=== PATIENT | male | born 1940 | race Caucasian/White ===

== ENCOUNTER 2022-02-21 08:38 | Emergency (ER) | payer MEDICARE, SELFPAY ==
[2022-02-21] VITALS (28 sets, daily range): BP systolic 163–182; BP diastolic 91–107; PULSE 75–112; RESP 16–31; TEMP 36.9; O2SAT 94–99
--- NOTE | 2022-02-21 08:30 | RT.EKG_ITS ---
APPROVED REPORT Exam: Resting ECG Reason for Exam: chest pain Patient Location: E HR:79 bpm ECG Measurements Heart Rate 79 AXIS WA 171 P 42 QRSd 84 QRS -61 QT 373 T 30 QTc 427 Conclusion Sinus rhythm...normal P axis, V-rate 60- 99 Probable left atrial enlargement...P >50mS, <-0.10mV V1 LAD, consider left anterior fascicular block...axis(240,-40), S>R II III aVF no STEMI, non-diagnostic EKG
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
[2022-02-21 09:06] LABS: Abs Immature Grans 0.03 10^3/uL (0.0-0.06); Absolute Basophil Count 0.04 10^3/uL (0.0-0.2); Absolute Eosinophil Count 0.08 10^3/uL (0.0-0.7); Absolute Lymphocyte Count 1.29 10^3/uL (1.2-3.4); Absolute Monocyte Count 0.64 10^3/uL (0.1-0.8); Absolute Neutrophil Count 6.46 10^3/uL (1.2-6.7); Basophils % 0.5; Eosinophils % 0.9; HCT 50.1 % (40.0-50.0); HGB 16.3 g/dL (13.5-17.5); Immature Grans % 0.4; Lymphocytes % 15.1; MCH 31.6 pg (27.0-33.0); MCHC 32.5 % (32.0-36.0); MCV 97 fL (80-95); MPV 9.6 fL (8.0-11.0); Monocytes % 7.5; Neutrophils % 75.6; Platelet Count 277 10^3/uL (130-400); RBC 5.16 10^6/uL (4.36-5.78); RDW 13.9 % (11.8-14.1); RDW-SD 50.2 fL; WBC 8.54 10^3/uL (4.4-10.8)
[2022-02-21] MEDS: Normal Saline 500 ML IV (09:20)
[2022-02-21] MEDS: Lidocaine 5% Patch 1 PATCH TP (09:25)
[2022-02-21 09:27] LABS: ALT 27 U/L (16-63); AST 56 U/L (15-37); Albumin 3.6 g/dL (3.4-5.0); Alkaline Phosphatase 61 U/L (46-116); Anion Gap 8.8 mmol/L (3-11); BUN 17 mg/dL (7-18); Bilirubin, Total 1.1 mg/dL (0.2-1.0); CO2 28.2 mmol/L (21.0-32.0); CREATININE 0.8 mg/dL (0.70-1.30); Calcium 8.8 mg/dL (8.5-10.1); Chloride 104 mmol/L (98-107); Glucose 100 mg/dL (74-106); Lipase 174 U/L (73-393); Sodium 141 mmol/L (136-145); Total Protein 7.5 g/dL (6.4-8.2); Troponin I < 50 ng/L (<or=60)
[2022-02-21 09:34] LABS: Bilirubin Negative (Negative); Blood Trace-intact (Negative); Clarity Clear (Clear); Glucose Negative (Negative); Ketones Negative (Negative); Leukocyte Esterase Negative (Negative); Nitrite Negative (Negative); Specific Gravity 1.025 (1.005-1.025); Urobilinogen 0.2 EU/dL (Up TO 0.2)
[2022-02-21 09:38] LABS: *AMPHETAMINES SCREEN URINE Negative (Negative); *BARBITURATES SCREEN URINE Negative (Negative); *BENZODIAZEPINES SCREEN URINE Negative (Negative); Cannabinoids THC Positive (Negative); Cocaine Screen,Urine Negative (Negative); METHADONE URINE SCREEN Negative (Negative); OPIATES URINE SCREEN Negative (Negative)
[2022-02-21 09:39] LABS: Tricyclic Antidepressants Negative (Negative)
[2022-02-21 09:42] LABS: Bacteria Negative HPF (Negative); C & S Indicated? No; Casts Negative LPF (Negative); Crystals Negative HPF (Negative); Epithelial Cells Rare HPF (Negative); Mucus Negative (Negative); RBC 0-2 HPF (0-2); WBC Negative HPF (0-5)
[2022-02-21] MEDS: Omnipaque 350 MG/ML 100 ML BTL IJ (10:01)
--- OUTSIDE RECORDS SUMMARY | 2022-02-21 10:27 | XMS_ITS | Encounter Summary ---
:1940 Author Organization [facility] [place] [address] Care Team Providers Name Role Phone Anaya Burch MD Primary Care Provider Reason for Visit Consultation (Routine) - Closed Specialty Diagnoses / Procedures Referred By Contact Refer red To Contact Ophthalmology Diagnoses erm os decreased vision Houston Jenkins MD Batra, Nikhil N, MD [facility] [address] Alli [facility] [place], [place] [id number] [place] [phone] Fax: Referral ID Status Reason Start Date Expiration Date Visits V isits Requested Authorized [id number] Closed Consult, 01/28/2019 01/28/2020 1 1 Test & Treat Encounter Details Date Type Department Care Team Description 03/07/2019 Office Visit Ophthalmology at [facility] Cira Pompa, ERM OS>OD; [facility] MD Tremayne Epiretinal membrane (ERM) of [place] [address] [place] [address] [place], [place] [address] Social History Tobacco Use Types Packs/Day Years Used Date Former Smoker Cigarettes Smokeless Tobacco: Never Used Comments: quit 23 years ago Alcohol Use Standard Drinks/Week Comments Yes 0.8 (1 standard drink = 0.6 oz pure occa ssionally, one drink per night alcohol) Alcohol Habits Answer Date Recorded How often do you have a drink Not asked containing alcohol? How many drinks containing alcohol do Not asked you have on a typical day when you are drinking? How often do you have six or more Not asked drinks on one occasion? Comment: occassionally, one drink per 05/20/2016 night Sex Assigned at Date Recorded Not on file documented as of this encounter Progress Notes Tremayne Pompa MD - 03/07/2019 2:00 PM EDT ASSESSMENT/PLAN: 1. ERM OS>OD 2. Epiretinal membrane (ERM) of both eyes Visual Acuity Visual Acuity (Snellen - Linear) Right Left Dist sc 20/40 +3 20/30 -2 Dist ph sc NI NI Near sc 20/30+3 20/30-2 Has multifocal IOLs 1. Epiretinal membrane, OS>OD Today's fundoscopic exam and multimodal imaging shows epiretinal membrane in both eyes. Discussed the treatment options that include 1) observation and 2) PPV-MP. Emphasized that the primary goal of the surgery is to decrease the metamorphopsia while the visual acuity also improves by a few lines. Discussed that even though the vision improves in most of the patients, in about 20% of thepatients it can stay the same or can even get worse. ASRS fact sheet given. The patient has many hobbies and activities, and feels that his vision is limiting his ability to function. Thus, he is very interested in surgical repair. The RBA of the procedure were discussed, and agreed to observe for another 2 months based on OCT and exam findings today. 2. Multifocal IOL OU -monitor Follow up 2 months for DFE, OCT OU Sooner PRN I, Jose Valencia, have performed the documentation for this encounter in the presence of, and acting as a scribe for Tremayne Pompa MD. I performed the services which were documented by the scribe, and I agree with the accuracy of the documentation in this encounter. Tremayne Pompa MD, PhD Extended Ophthalmoscopy Indication: 1. ERM OS>OD 2. Epiretinal membrane (ERM) of both eyes Technique: A) Indirect ophthalmoscopy with scleral depression B) Slit lamp exam with 90D/78D lens Findings: Main Ophthalmology Exam External Exam Right Left External Normal Normal Slit Lamp Exam Right Left Lids/Lashes Normal Normal Conjunctiva/Sclera 1+ Injection White and quiet Cornea Clear Clear Anterior Chamber Deep and quiet Deep and quiet Iris Round and reactive Round and reactive Lens Posterior chamber intraocular lens Posterior chamber intraocular lens Fundus Exam Right Left Vitreous Normal Normal Disc Normal Normal C/D Ratio 0.5 0.6 Macula Good anatomy without signs of recurrent membrane or edema Mild epiretinal membrane Vessels Normal Normal Periphery 0.5, ERM, attached Equ[place] tear at 9:00 s/p LR documented in this encounter Plan of Treatment Not on filedocumented as of this encounter Procedures Procedure Name Priority Date/Time Associated Diagnosis Comme nts OCT RETINA - OU - Routine 03/07/2019 4:33 PM Epiretinal membra ne Results for this BOTH EYES EDT (ERM) of both eyes procedure are in the results section. documented in this encounter Results OCT [id number] EYES (03/07/2019 4:33 PM EDT) Anatomical Region Laterality Modality Other Specimen (Source) Anatomical Location Collection Method / Collectio n Time Received Time / Laterality Volume Narrative 03/07/2019 4:33 PM EDT Right Eye Quality was good. Scan locations include d subfoveal. Progression has no prior data. Findings include abnormal fo veal contour, epiretinal membrane. Left Eye Quality was good. Scan locations include d subfoveal. Progression has no prior data. Findings include abnormal fo veal contour, epiretinal membrane. Notes Tremayne Pompa MD OPHTHALMOLOGY SERVICES JUANA COMER documented in this encounter Visit Diagnoses Diagnosis ERM OS>OD documented in this encounter Care Teams Machine Stripper Relationship Specialty Start Date End Date Anaya Burch MD PCP - General 07/06/[address] [place] [phone] documented as of this encounter
--- OUTSIDE RECORDS SUMMARY | 2022-02-21 10:27 | XMS_ITS | Clinical Summary ---
:1940 Author Organization [place] [address] Care Team Providers Name Role Phone Anaya Burch MD Primary Care Provider Allergies Active Allergy Reactions Severity Noted Date Comments Sulfa (Sulfonamide High CIS - sev ere gastric Antibiotics) distress Tetracyclines High CIS - severe g astric distress Medications Medication Sig Dispensed Refills Start Date End Date Status GINKGO BILOBA ORAL 0 01/20/2010 Active naproxen sodium (ALEVE) 0 01/20/2010 Active 220 mg tablet multivitamin (THERAGRAN) 0 01/20/2010 Active tablet traZODone (DESYREL) 50 Take 100 mg by 0 Active mg tablet mouth nightly. clonAZEpam (KLONOPIN) Take 0.25 mg by 0 Active 0.5 mg tablet mouth every morning. GLUCOSAM SUL NA/CHONDR Take 400 mg by 0 Active CASAS A NA (GLUCOSAMINE & mouth daily. CHONDROIT SUL.NA ORAL) Active Problems Problem Noted Date Horseshoe retinal tear, left eye 02/15/2013 Obstructive sleep apnea (adult) (pediatric) 09/29/2011 Insomnia 07/20/2011 Anxiety 07/20/2011 Depression 07/20/2011 Resolved Problems Problem Noted Date Resolved Date Snoring 07/20/2011 09/29/2011 Immunizations Name Administration Dates Next Due Influenza Vaccine, Whole 08/14/2007 Pneumococcal Conjugate 7 09/14/2007 Family History Medical History Relation Comments Cancer Father Diabetes Other Amblyopia Neg Hx Cataracts Neg Hx Glaucoma Neg Hx Heart Disease Neg Hx Hypertension Neg Hx Macular Degeneration Neg Hx Retinal Detachment Neg Hx Strabismus Neg Hx Thyroid Disease Neg Hx Relation Status Comments Father Other Social History Tobacco Use Types Packs/Day Years [...] Assigned at Date Recorded Not on file Last Filed Vital Signs Vital Sign Reading Time Taken Comments Blood Pressure 108/87 05/23/2016 3:00 PM EDT Pulse 67 05/23/2016 2:45 PM EDT Temperature 36.4 ??C (97.5 ??F) 05/23/2016 2:18 PM EDT Respiratory Rate 16 05/23/2016 3:00 PM EDT Oxygen Saturation 95% 05/23/2016 3:00 PM EDT Inhaled Oxygen Concentration - - Weight 74.4 kg (164 lb) 05/23/2016 11:53 AM EDT Height 172.7 cm (5' 8) 05/23/2016 11:53 AM EDT Body Mass Index 24.94 05/23/2016 11:53 AM EDT Plan of Treatment Health Maintenance Due Date Last Done Comments Covid-19 Vaccine (#1) 1947 Hepatitis C Screening 1960 Tdap adult 1961 Tetanus vaccine 1961 Zoster vaccine (1 of 2) 1992 Advance Directive 1997 Pneumoccocal Vaccine: 65+ (1 - PCV) 2007 09/14/2007 Influenza (Flu) vaccine (1 of 1 - Influenza standard 04/14/2022 08/14/2007 series) Insurance Payer Benefit Plan / Subscriber ID Effective Phone Address T ype Group Dates MEDICARE MEDICARE PART [id number] 2007-Prese [phone] [facility] [id number] [facility] [id number] 2020-Prese [phone] [address] MEDICARE MANAGED nt [address] [place] [address] [employer] BCBS [id number] 2018-Prese [address] [place] [address] [place] [address] Advance Directives Latest Code Status on File Code Status Date Activated Date Inactivated Comments Full Code 05/23/2016 12:50 PM 05/23/2016 5:35 PM Does patient have capacity to make decision: Yes Care Teams Flight Instructor Relationship Specialty Start Date End Date Anaya Burch MD PCP - General 07/06/10 [address] [place] [address]
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
--- OUTSIDE RECORDS SUMMARY | 2022-02-21 10:27 | XMS_ITS | Encounter Summary ---
:1940 Author Organization [facility] [place] [address] Care Team Providers Name Role Phone Anaya Burch MD Primary Care Provider Reason for Visit Reason Comments Macular Edema ERM OS>OD Encounter Details Date Type Department Care Team Description 07/04/2019 Office Visit Ophthalmology at [facility] Cira Pompa, ERM OS>OD; [facility] MD Tremayne Epiretinal membrane (ERM) [place] [address] [place] [address] [place], [place] [address] Social History Tobacco Use Types [...] encounter Progress Notes Tremayne Pompa MD - 07/04/2019 12:15 PM EST ASSESSMENT/PLAN: 1. ERM OS>OD 2. Epiretinal membrane (ERM) of both eyes Visual Acuity Visual Acuity (Snellen - Linear) Right Left Dist sc 20/40 -2 20/30 -2 Dist ph sc NI NI Near cc 20/30 20/30 Correction: Glasses 1. Epiretinal membrane, OS>OD Today's fundoscopic exam and multimodal imaging shows epiretinal membrane in both eyes. Today 07/04/19 - The patient has many hobbies and activities, and feels that his vision is limiting his ability to function. Thus, he is very interested in surgical repair. The RBA of the procedure were discussed, and agreed to observe for another 6 months based on OCT and exam findings today. Amsler grid given in cl inic 2. 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 Blepharitis OU 4. HST OS - stable Follow up 6 months for DFE, OCT OU I, Jose Valencia, have performed the documentation [...] Normal Slit Lamp Exam Right Left Lids/Lashes blepharitis blepharitis Conjunctiva/Sclera 1+ Injection White and quiet Cornea Clear Clear Anterior Chamber Deep and quiet Deep and quiet Iris Round and reactive Round and reactive Lens multifocal IOL multifocal IOL Fundus Exam Right Left Vitreous Normal Normal Disc Normal Normal C/D Ratio 0.5 0.6 Macula ERM, rare drusen moderate ERM Vessels Normal Normal Periphery Normal Equatorial tear at 9:00 s/p LR documented in this encounter Plan of Treatment Not on filedocumented as of this encounter Procedures Procedure Name Priority Date/Time Associated Diagnosis Comme nts OCT RETINA - OU - Routine 07/04/2019 1:15 PM Epiretinal membra ne Results for this BOTH EYES EST (ERM) of both eyes procedure are in the results section. documented in this encounter Results OCT Retina - OU - Both Eyes (07/04/2019 1:15 PM EST) Anatomical Region Laterality Modality Other Specimen (Source) Anatomical Location Collection Method / Collectio n Time Received Time / Laterality Volume Narrative 07/04/2019 1:15 PM EST Right Eye Quality was good. Scan locations include d subfoveal. Progression has been stable. Findings include abnormal foveal contour, epiretinal membrane. Left Eye Quality was good. Scan locations include d subfoveal. Progression has been stable. Findings include abnormal foveal contour, epiretinal membrane. Notes Tremayne Pompa MD OPHTHALMOLOGY SERVICES JUANA COMER documented in this encounter Visit Diagnoses Diagnosis ERM OS>OD documented in this encounter Care Teams Work Environment Safety Inspector Relationship Specialty Start Date End Date Anaya Burch MD PCP - General 07/06/10 [address] [place] [phone] documented as of this encounter
--- OUTSIDE RECORDS SUMMARY | 2022-02-21 10:27 | XMS_ITS | Encounter Summary ---
:1940 Author Organization [facility] Address [facility] [place] [address] Care Team Providers Name Role Phone Anaya Burch MD Primary Care Provider Reason for Visit Reason Comments Epiretinal Membrane Encounter Details Date Type Department Care Team Description 09/15/2016 Office Visit Ophthalmology at [facility] C Shon Broosk ERM OD (epiretinal membrane, right eye) (Primary Dx); [facility] MD Yogi Horseshoe retinal tear, [place] [address] OPHTHALMOLOGY [place] PT. [place], [place] [address] (Wo rk) Social History Tobacco Use Types Packs/Day Years [...] documented as of this encounter Progress Notes Shon Brooks MD - 09/15/2016 9:45 AM EST Bilateral macular pucker. Status post vitrectomy right eye May 23, 2016. Presently 20/25 Glaucoma suspect Horseshoe tear left eye 9:00 treated many years ago Dry eye syndrome Posterior vitreous separation both eyes Pseudophakia ? Patient continues to do very well after vitrectomy membrane peeling. Follow-up with Dr. Jenkins for continuity of care. Patient doing well in the right eye with 20/25 vision. No evidence of persistent membrane, cystoid macular edema or high-risk peripheral pathology Return immediately if any flashes floaters or visual field loss in left eye or right eye. Return here as needed. documented in this encounter Plan of Treatment Not on filedocumented as of this encounter Procedures Procedure Name Priority Date/Time Associated Diagnosis Comme nts OCT RETINA - OU - Routine 09/15/2016 11:34 AM ERM OD (epiretin al Results for this BOTH EYES EST membrane, right eye) procedu re are in the results section. documented in this encounter Results OCT [id number] EYES (09/15/2016 11:34 AM EST) Anatomical Region Laterality Modality Other Specimen (Source) Anatomical Location Collection Method / Collectio n Time Received Time / Laterality Volume Narrative 09/15/2016 11:34 AM EST This imaging studies indicated by virtue of the patient's history of macular pucker surgery and reduced visua l acuity but also decreased visual acuity left eye and macular pucker Right eye slightly irregular contour but no edema or swelling or recurrent membrane. In the left eye mild epiretina l membrane without progression. No cystoid macular edema hole or unusual tr action in either eye. 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
--- OUTSIDE RECORDS SUMMARY | 2022-02-21 10:27 | XMS_ITS | Encounter Summary ---
:1940 Author Organization [facility] Address [facility] [place] [address] Care Team Providers Name Role Phone Anaya Burch MD Primary Care Provider Reason for Visit Reason Comments Post Op Encounter Details Date Type Department Care Team Description 06/14/2016 Office Visit Ophthalmology at [facility] C Shon Brooks ERM OD (epiretinal [facility] B, membrane, right Drive [facility] eye) [place] [address] [address] [phone] OPHTHALMOLOGY DE PT. [place], [place] [address] (Wo rk) Social History Tobacco [...] encounter Progress Notes Shon Brooks MD - 06/14/2016 10:30 AM EDT Bilateral macular pucker. Glaucoma suspect Horseshoe tear left eye 9:00 treated many years ago Dry eye syndrome Posterior vitreous separation both eyes Pseudophakia Stable status post vitrectomy membrane peeling Improving vision Retina flat 360 in all quadrants Return 4 weeks for OCT scan or sooner if visual field loss or pain documented in this encounter Plan of Treatment Not on filedocumented as of this encounter Visit Diagnoses Diagnosis ERM OD (epiretinal membrane, right eye) Macular puckering of retina documented in this encounter Care Teams Cytopathology Technologist Relationship Specialty Start Date End Date Anaya Burch MD PCP - General 07/06/[address] [place] [phone] documented as of this encounter
--- OUTSIDE RECORDS SUMMARY | 2022-02-21 10:27 | XMS_ITS | Encounter Summary ---
:1940 Author Organization [facility] Address [facility] [place] [address] Care Team Providers Name Role Phone Anaya Burch MD Primary Care Provider Reason for Visit Reason Comments Post Op 1 Day PO for PPV/MP Encounter Details Date Type Department Care Team Description 05/24/2016 Office Visit Ophthalmology at [facility] C Shon Brooks ERM OD (epiretinal [facility] B, membrane, right Drive [facility] eye) [place] [address] [address] [phone] OPHTHALMOLOGY DE PT. [place], [place] [address] (Wo rk) Social History Tobacco [...] encounter Progress Notes Shon Brooks MD - 05/24/2016 10:30 AM EDT Bilateral macular pucker. Glaucoma suspect Horseshoe tear left eye 9:00 treated many years ago Dry eye syndrome Posterior vitreous separation both eyes Pseudophakia ?? Stable postop day 1 vitrectomy membrane peeling for adherent saw man pucker right eye Good initial anatomy Retina periphery flat 360 1 week or immediately a visual field loss or decrease in vision Pred forte and Vigamox each 4 times a day documented in this encounter Plan of Treatment Not on filedocumented as of this encounter Visit Diagnoses Diagnosis ERM OD (epiretinal membrane, right eye) Macular puckering of retina documented in this encounter Care Teams Supervisor Bottle House Cleaners Relationship Specialty Start Date End Date Anaya Burch MD PCP - General 07/06/10 [address] [place] [phone] documented as of this encounter
--- OUTSIDE RECORDS SUMMARY | 2022-02-21 10:27 | XMS_ITS | Encounter Summary ---
:1940 Author Organization [facility] [place] [address] Care Team Providers Name Role Phone Anaya Burch MD Primary Care Provider Reason for Visit Reason Comments Epiretinal Membrane Encounter Details Date Type Department Care Team Description 09/12/2019 Office Visit Ophthalmology at [facility] C Peña, ERM OS>OD; [facility] MD Tremayne Epiretinal membrane (ERM) of [place] [address] [place] [address] [place], [place] [address] Social History Tobacco Use Types [...] encounter Progress Notes Tremayne Pompa MD - 09/12/2019 12:15 PM EST ASSESSMENT/PLAN: 1. ERM OS>OD 2. Epiretinal membrane (ERM) of both eyes Visual Acuity Visual Acuity (Snellen - Linear) Right Left Dist sc 20/50 20/30 -1 Dist ph sc NI NI Near cc 20/20-1 20/30-2 Pt notes VA OU @ D&N is still fuzzy Tonometry Tonometry (Applanation, 12:56 PM) Right Left Pressure 19 19 1. Epiretinal membrane, OS>OD Today's fundoscopic exam and multimodal imaging shows epiretinal membrane in both eyes. Today 09/12/19 - Today the ERMs are overall stable, and definitely not visually significant. Based on that, PPV wasnot recommended at this point 2. Multifocal IOL OU - s/p surgery with Dr. Houston Jenkins in [place], [place] ~5 years ago Today 09/12/19 - Pt reports that his billiard shots have consistently veered off in the same direction. The multifocal IOL appears slightly decentered inferonasally. 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 Recommended an evaluation by Dr. Dailey, to discuss the treatment options (referral for corneal refractive surgery vs IOL exchange vs other). 3. Blepharitis OU - monitor 4. HST OS s/p LR - stable 5. PVD OU Follow up with Dr. Dailey for multifocal IOL evaluation Follow up with retina 6 months for DFE, OCT OU I, [...] reactive Round and reactive Lens multifocal IOL decentered inferonasally multifocal IOL Fundus Exam Right Left Vitreous ?PVD PVD Disc Normal Normal C/D Ratio 0.5 0.6 Macula ERM, rare drusen moderate ERM Vessels Normal Normal Periphery Normal Equatorial tear at 9:00 s/p LR documented in this encounter Plan of Treatment Not on filedocumented as of this encounter Procedures Procedure Name Priority Date/Time Associated Diagnosis Comme nts OCT RETINA - OU - Routine 09/12/2019 1:49 PM Epiretinal membra ne Results for this BOTH EYES EST (ERM) of both eyes procedure are in the results section. documented in this encounter Results OCT Retina - OU - Both Eyes (09/12/2019 1:49 PM EST) Anatomical Region Laterality Modality Other Specimen (Source) Anatomical Location Collection Method / Collectio n Time Received Time / Laterality Volume Narrative 09/12/2019 1:49 PM EST Right Eye Quality was good. [...] OS>OD documented in this encounter Care Teams Berry Picker Machine Operator Relationship Specialty Start Date End Date Anaya Burch MD PCP - General 07/06/[address] [place] [phone] documented as of this encounter
--- OUTSIDE RECORDS SUMMARY | 2022-02-21 10:27 | XMS_ITS | Encounter Summary ---
:1940 [place] [address] Care Team Providers Name Role Phone Anaya Burch MD Primary Care Provider Encounter Details Date Type Department Care Team Description 05/23/2016 Surgery Main Operating Room Shon Brooks W/ Ignacia Calix MD [facility] (WRVU 16.33) [facility] [place] [address] [place] [address] [phone] Social History Tobacco Use Types Packs/Day Years [...] on file documented as of this encounter Last Filed Vital Signs Vital Sign Reading Time Taken Comments Blood Pressure 108/75 05/23/2016 2:45 PM EDT Pulse 67 05/23/2016 2:45 PM EDT Temperature 36.4 ??C (97.5 ??F) 05/23/2016 2:18 PM EDT Respiratory Rate 18 05/23/2016 2:45 PM EDT Oxygen Saturation 98% 05/23/2016 2:45 PM EDT Inhaled Oxygen Concentration - - Weight 74.4 kg (164 lb) 05/23/2016 11:53 AM EDT Height 172.7 cm (5' 8) 05/23/2016 11:53 AM EDT Body Mass Index 24.94 05/23/2016 11:53 AM EDT documented in this encounter Discharge Instructions Discharge InstructionsIrene Morales RN - 05/23/2016 2:36 PM EDT POST ANESTHESIA INSTRUCTIONS Go home, rest, use caution on stairs. Change positions slowly. Do not smoke if you are alone. Diet light to regular as tolerated today. If nausea occurs start with clear liquids and progress slowly. No driving, operating machinery, alcoholic beverages and no important decisions for 24 hours. Monitor IV site for signs and symptoms of infection: increasing redness, swelling, foul drainage, ifoccurs contact M.D. Patients who have had endotrachial tubes (this tube, used by anesthesia department, is passed down your throat after you are asleep, to ensure safe air passage during your operation). A sore throat is normal due to the tube. Cold liquids or soothing lozenges will help ease the discomfort. The generalized muscle aches are due to the medication given to you just before the tube is inserted. As the medication wears off, you may develop muscle soreness, which usually goes away in 12-24 hours. Patient InstructionsShon Brooks MD - 05/23/2016 2:44 PM EDT Positioning after surgery: We recommend that you get up and stretch your legs and move around, with caution, for 5 min of everyhour to avoid a blood clot from forming in your body. Pain control: Use tylenol and ice packs Call the [facility] at [phone] and ask for the doctor residential remodeling subcontractor if you having severe pain, nauseaor vomiting documented in this encounter Medications at Time of Discharge Medication Sig Dispensed Refills Start Date End Date traZODone (DESYREL) 50 mg Take 100 mg by 0 tablet mouth nightly. clonAZEpam (KLONOPIN) 0.5 Take 0.25 mg by 0 mg tablet mouth every morning. GLUCOSAM SUL NA/CHONDR CASAS Take 400 mg by 0 A NA (GLUCOSAMINE & mouth daily. CHONDROIT SUL.NA ORAL) GINKGO BILOBA ORAL 0 01/20/2010 naproxen sodium (ALEVE) 0 01/20/2010 220 mg tablet multivitamin (THERAGRAN) 0 01/20/2010 tablet cycloSPORINE (RESTASIS) Place 1 drop into 0 03/07/2019 0.05 % Dropperette both eyes 2 times daily. aspirin 325 mg EC tablet Take 325 mg by 0 06/02/2016 mouth as needed (for headache). documented as of this encounter Progress Notes Irene Morales RN - 05/23/2016 3:31 PM EDT 1515-Patient alert and oriented, vital signs stable. Reviewed discharge instructions; patient and friendDionte verbalized understanding. Copy of instruction sheet with contact numbers for questions/concerns with patient. Given eye kit bag to take home with pt. Per Dr. Brooks, instructed to come in to clinic tomorrow AM at 0730 for follow up, made note on instruction paperwork, pt aware. Pt denies pain, resp regular, no grimacing. 1527-Pt alert, VSS, escorted out of facility via wheelchair with nurse. Ride home by friendDionte. documented in this encounter H&P Notes Shon Brooks MD - 05/23/2016 12:49 PM EDT Please see complete history and physical recent update No exam, review of system or medication changes per patient Patient requesting LMA anesthesia versus local mac Consent verified Shon Brooks M.D. documented in this encounter Nursing Notes Mirtha Yepez RN - 05/23/2016 1:04 PM EDT 1300 preop skin assesment done by Tiffany Zuleta RN documented in this encounter Miscellaneous Notes Op Note - Shon Brooks MD - 05/23/2016 2:47 PM EDT [facility] [place] Operative Note Patient Name: Curtis Vasquez : [id number] MR#: [id number] Case Date: 05/23/2016 Surgeon: Surgeon(s) and Role: * Shon Brooks MD - Primary CLARIFICATION: BLANKS DATE OF SURGERY: 05/23/2016. PREOPERATIVE DIAGNOSIS: Macular pucker, right eye. POSTOPERATIVE DIAGNOSIS: Macular pucker, right eye. SURGEON: Shon Brooks M.D. ANESTHESIA: General. COMPLICATIONS: None. OPERATION PERFORMED: 1. Membrane peeling. 2. Pars plana vitrectomy. OPERATIVE INDICATIONS: The patient is a gentleman with reduced visual acuity and a macular pucker. After careful review of all the risks, benefits, precautions, alternatives, and indications, including but not limited to retinal detachment, need for further surgery, <___> and any and all rare and unforeseen complications, the patient has given informed consent to proceed with surgery. OPERATIVE TECHNIQUE: Patient was ushered into the operating room. General anesthesia was safely established. A timeout was performed collectively by the surgical and anesthesia teams. A divided 3 port pars plana vitrectomy allowed for removal of all of the vitreous and hyaloid. The membrane was then engaged with a pick followed by forceps removal. This was removed slowly and carefully without complication or difficulty with relatively good anatomy. Please note the membrane was found to be markedly adherent, but it was removed carefully and slowly without undue trauma to the macula. Periphery revealed no holes, tears, dialysis, or other high risk pathology. <___> The eye was then closed with 7-0 Vicryl suture and the pressure titrated to 10 mm. Conjunctiva and Tenon's were coapted followed by supplemental <___> anesthetic followed by subconjunctival injection of <___>. Cosopt and Maxitrol were placed with sterile eye patch and shield. The patient was extubated and discharged to Same Day Surgery. He will be discharged from Same Day Surgery when medically stable and there are no ophthalmic or medical issues. The importance of airway safety, venous thrombosis prevention, and general safety measures carefully reviewed. He will return here tomorrow. He is to call the eye physician residential remodeling subcontractor with any problems, questions, or concerns. Brief Op Note - Shon Brooks MD - 05/23/2016 2:46 PM EDT Brief Operative Note Patient Name: Curtis Vasquez : [id number] MR#: [id number] Case Date: 05/23/2016 Surgeon: Surgeon(s) and Role: * Shon Brooks MD - Primary Preoperative diagnosis: ERM OD Postoperative diagnosis: ERM OD Procedure(s): VITRECTOMY, W/ MEMBRANE STRIPPING Anesthesia: General Findings: ERM Complications: 0 Fluids: LR Estimated Blood Loss:0 Drains: 0 Disposition: awakened from anesthesia, extubated and taken to the recovery room in a stable condition, having suffered no apparent untoward event. Condition: doing well without problems Infection Bundle used? N/A Attestation: Case Date: 05/23/2016 I performed this procedure without the involvement of a resident. (Please see the Surgical Encounter Summary for any Implant and Specimen details pertinent to this patient.) documented in this encounter Plan of Treatment Not on filedocumented as of this encounter Procedures Procedure Name Priority Date/Time Associated Diagnosis Comme nts VITRECTOMY, W/ 05/23/2016 1:04 PM EDT ERM OS (epiretin al MEMBRANE STRIPPING membrane, lef t eye) (WRVU 16.33) ERM OD (epiretinal membrane, right eye) ECG SCAN 05/23/2016 12:00 AM EDT documented in this encounter Results SCAN DOC: ECG (05/23/2016 12:00 AM EDT) Narrative This result has an attachment that is no t available. Scanning Provider MEDIA MGR SCAN EXT ORDR/RSLT documented in this encounter Visit Diagnoses Diagnosis ERM OS (epiretinal membrane, left eye) Macular puckering of retina ERM OD (epiretinal membrane, right eye) Macular puckering of retina documented in this encounter Administered Medications Inactive Administered Medications - up to 3 most recent administrations Medication Order MAR Action Action Date Dose Rate Site atropine 1 % ophthalmic solution Given 05/23/2016 12:11 PM EDT 1 drop 1 drop 1 drop, Right Eye, EVERY 5 MIN, 3 doses, First dose on Mon05/23/16 at 1215, Last dose on Mon05/23/16 at 1225, Day of Surgery (Day of Procedure), Routine Given 05/23/2016 12:06 PM EDT 1 drop Given 05/23/2016 12:01 PM EDT 1 drop balanced salt (BSS PLUS) irrigation Given 05/23/2016 1:24 PM EDT 1 Bottle solution ONCE PRN, Starting on Mon05/23/16 at 1324, Until Mon05/23/16 at 1735, Intra-Operative (Intra-Procedure), Routine balanced salt (BSS) Given 05/23/2016 1:24 PM 3 Bottles 19- Surgical Site irrigation solution EDT ONCE PRN, Starting on Mon05/23/16 at 1324, Until Mon05/23/16 at 1735, Intra-Operative (Intra-Procedure), Routine balanced salt (BSS) Given 05/23/2016 1:25 PM 1 Bottle 19- Surgical Site irrigation solution EDT ONCE PRN, Starting on Mon05/23/16 at 1325, Until Mon05/23/16 at 1735, Intra-Operative (Intra-Procedure), Routine BUpivacaine (PF) (MARCAINE) 0.75 % Given 05/23/2016 2:08 PM EDT 1.25 mLs Right Eye (7.5 mg/mL) injection ONCE PRN, Starting on Mon05/23/16 at 1341, Until Mon05/23/16 at 1735, Intra-Operative (Intra-Procedure), Routine Given 05/23/2016 1:41 PM EDT 0.75 mLs Right Eye ceFAZolin (ANCEF) injection Given 05/23/2016 1:27 PM EDT 100 mg ONCE PRN, Starting on Mon05/23/16 at 1327, Until Mon05/23/16 at 1735, Intra-Operative (Intra-Procedure), Routine dexamethasone (DECADRON) injection Given 05/23/2016 1:25 PM EDT 2 mg ONCE PRN, Starting on Mon05/23/16 at 1325, Until Mon05/23/16 at 1735, Intra-Operative (Intra-Procedure), Routine dorzolamide-timolol (PF) (COSOPT) 2-0.5 % Given 05/23/2016 1:25 PM EDT 1 drop ophthalmic solution ONCE PRN, Starting on Mon05/23/16 at 1325, Until Mon05/23/16 at 1735, Intra-Operative (Intra-Procedure), Routine EPINEPHrine (PF) injection Soln Given 05/23/2016 1:28 PM EDT 0.5 mg ONCE PRN, Starting on Mon05/23/16 at 1328, Until Mon05/23/16 at 1735, Intra-Operative (Intra-Procedure), Routine lactated ringers infusion 1,000 New Bag 05/23/2016 12:14 PM ED T 1,000 mLs 100 mL/hr mL 1,000 mL, at 100 mL/hr, Intravenous, CONTINUOUS, Starting on Mon05/23/16 at 1215, Until Mon05/23/16 at 1530, Day of Surgery (Day of Procedure) lidocaine (XYLOCAINE) 20 Given 05/23/2016 2:08 PM 1.25 mLs 19- Surgical Site mg/mL (2 %) injection EDT ONCE PRN, Starting on Mon05/23/16 at 1341, Until Mon05/23/16 at 1735, Intra-Operative (Intra-Procedure), Routine Given 05/23/2016 1:41 PM EDT 0.75 mLs 19- S urgical Site moxifloxacin (VIGAMOX) 0.5 % ophthalmic Given 05/23/2016 12:11 P M EDT 1 drop solution 1 drop 1 drop, Right Eye, EVERY 5 MIN, 3 doses, First dose on Mon05/23/16 at 1215, Last dose on Mon05/23/16 at 1225, Day of Surgery (Day of Procedure), Routine Given 05/23/2016 12:06 PM EDT 1 drop Given 05/23/2016 12:01 PM EDT 1 drop bxoafxlu-rombkhcic-cirvomxurrwuo (DEXACINE) Given 05/23/2016 1:28 PM EDT 1 Tube 3.5 mg/g-10,000 unit/g-0.1 % ophthalmic ointment ONCE PRN, Starting on Mon05/23/16 at 1328, Until Mon05/23/16 at 1735, Intra-Operative (Intra-Procedure), Routine PHENYLephrine (MYDFRIN) 2.5 % ophthalmic Given 05/23/2016 12:11 PM EDT 1 drop solution 1 drop 1 drop, Right Eye, EVERY 5 MIN, 3 doses, First dose on Mon05/23/16 at 1215, Last dose on Mon05/23/16 at 1225, Day of Surgery (Day of Procedure), Routine Given 05/23/2016 12:06 PM EDT 1 drop Given 05/23/2016 12:01 PM EDT 1 drop povidone-iodine 5 % ophthalmic solution Given 05/23/2016 1:29 PM EDT 30 mLs ONCE PRN, Starting on Mon05/23/16 at 1329, Until Mon05/23/16 at 1735, Intra-Operative (Intra-Procedure), Routine prednisoLONE acetate (PRED FORTE) 1 % Given 05/23/2016 12:01 PM EDT 1 drop ophthalmic suspension 1 drop 1 drop, Right Eye, ONCE, 1 dose, On Mon05/23/16 at 1215, Day of Surgery (Day of Procedure), Routine documented in this encounter Active and Recently Administered Medications Times are shown in EDT. Scheduled Medication Order 05/21/2016 05/22/2016 05/23/2016 atropine 1 % ophthalmic solution 1 drop (COMPLETED) 1201 (Given - Provider: Bonnie Garcia RN)1206 (Given - Provider: Bonnie Garcia RN)1211 (Given - Provider: Bonnie Garcia RN) 1 drop, Right Eye, EVERY 5 MIN, 3 doses, First dose on Mon05/23/16 at 1215, Last dose on Mon05/23/16 at 1225, Day of Surgery (Day of Procedure), Routine moxifloxacin (VIGAMOX) 0.5 % ophthalmic solution 1 drop (COMPLET ED) 1201 (Given - Provider: Bonnie Garcia RN)1206 (Given - Provider: Bonnie Garcia RN)1211 (Given - Provider: Bonnie Garcia RN) 1 drop, Right Eye, EVERY 5 MIN, 3 doses, First dose on 05/23/16 at 1215, Last dose on Mon05/23/16 at 1225, Day of Surgery (Day of Procedure), Routine PHENYLephrine (MYDFRIN) 2.5 % ophthalmic solution 1 drop (COMPLE BARB) 1201 (Given - Provider: Bonnie Garcia RN)1206 (Given - Provider: Bonnie Garcia RN)1211 (Given - Provider: Bonnie Garcia RN) 1 drop, Right Eye, EVERY 5 MIN, 3 doses, First dose on Mon05/23/16 at 1215, Last dose on Mon05/23/16 at 1225, Day of Surgery (Day of Procedure), Routine prednisoLONE acetate (PRED FORTE) 1 % ophthalmic suspension 1 drop (COMPLETED) 1201 (Given - Provider: Bonnie calvillo RN) 1 drop, Right Eye, ONCE, 1 dose, 05/29 at 1215, Day of Surgery (Day of Procedure), Routine sodium chloride 0.9 % flush 5 mL 5 mL, Intravenous, 2 TIMES DAILY, First dose on Mon05/23/16 at 2100, Until Discontinued, Routine Continuous Medication Order 05/21/2016 05/22/2016 05/23/2016 lactated ringers infusion 1,000 mL 1214 (New Bag - Provider: Bonnie Garcia RN) 1,000 mL, at 100 mL/hr, Intravenous, CON TINUOUS, Starting Mon05/23/16 at 1215, Until Mon05/23/16 at 1530, Day of Surgery (Day of Procedure) PRN Medication Order 05/21/2016 05/22/2016 05/23/2016 acetaminophen (TYLENOL) tablet 1,000 mg 1,000 mg, Oral, EVERY 6 HOURS PRN, Start ing Mon05/23/16 at 1445, Until Mon05/23/16 at 1735, Pain, for MODERATE pain (4-6), Do not exceed 4,000 mg in 24 hours, Routine balanced salt (BSS PLUS) irrigation solution (CANCELED) 1324 (Given - Provider: Shon Brooks MD) ONCE PRN, Starting Mon05/23/16 at 1324, Until Mon05/23/16 at 1735, Intra- Operative (Intra-Procedure), Routine balanced salt (BSS) irrigation solution (CANCELED) 1324 (Given - Provider: Shon Brooks MD) ONCE PRN, Starting Mon05/23/16 at 1324, Until Mon05/23/16 at 1735, Intra- Operative (Intra-Procedure), Routine balanced salt (BSS) irrigation solution (CANCELED) 1325 (Given - Provider: Shon Brooks MD) ONCE PRN, Starting 05/23/16 at 1325, Until 05/23/16 at 1735, Intra- Operative (Intra-Procedure), Routine BUpivacaine (PF) (MARCAINE) 0.75 % (7.5 mg/mL) injection (CANCEL ED) 1341 (Given - Provider: Shon Brooks MD)1408 (Given - Provider: Shon Brooks MD) ONCE PRN, Starting 05/23/16 at 1341, Until 05/23/16 at 1735, Intra- Operative (Intra-Procedure), Routine ceFAZolin (ANCEF) injection (CANCELED) 1327 (Given - Provider: Shon Brooks MD - Comment: sc post op) ONCE PRN, Starting 05/23/16 at 1327, Until 05/23/16 at 1735, Intra- Operative (Intra-Procedure), Routine dexamethasone (DECADRON) injection (CANCELED) 1325 (Given - Provider: Sohn Brooks MD - Comment: sc post op) ONCE PRN, Starting 05/23/16 at 1325, Until 05/23/16 at 1735, Intra- Operative (Intra-Procedure), Routine dorzolamide-timolol (PF) (COSOPT) 2-0.5 % ophthalmic solution (C ANCELED) 1325 (Given - Provider: Shon Brooks MD - Comment: post op) ONCE PRN, Starting 05/23/16 at 1325, Until 05/23/16 at 1735, Intra- Operative (Intra-Procedure), Routine EPINEPHrine (PF) injection Soln (CANCELED) 1328 (Given - Provider: Shon Brooks MD - Comment: in bss+) ONCE PRN, Starting 05/23/16 at 1328, Until 05/23/16 at 1735, Intra- Operative (Intra-Procedure), Routine fentaNYL (PF) 50 mcg/mL 2mL syringe 25 mcg, Intravenous, EVERY 5 MIN PRN, St arting Mon05/23/16 at 1420, Until Mon05/23/16 at 1530, Pain, for 1-4 pain score, for 1-4 pain score Hold for respiratory rate less than 10 per minute. Maximum d ose: 250 mcg over one hour., PACU Recovery, Routine fentaNYL (PF) 50 mcg/mL 2mL syringe 50 mcg, Intravenous, EVERY 5 MIN PRN, St arting 05/23/16 at 1420, Until 05/23/16 at 1530, Pain, for 5-10 pain score, for 5-10 pain score Hold for respiratory rate less than 10 per minute. Maximum dose: 250 mcg over one hour., PACU Recovery, Routine lidocaine (XYLOCAINE) 10 mg/mL (1 %) injection 3 mg 3 mg (0.3 mL), Subcutaneous, ONCE PRN, 1 dose, Starting Mon05/23/16 at 1146, Until Mon05/23/16 at 1530, for discomfort with PIV insertion, Day of Surgery (Day of Procedure), Routine lidocaine (XYLOCAINE) 10 mg/mL (1 %) injection 3 mg 3 mg (0.3 mL), Subcutaneous, ONCE PRN, 1 dose, Starting Mon05/23/16 at 1445, Until Mon05/23/16 at 1735, for discomfort with PIV insertion, Routine lidocaine (XYLOCAINE) 20 mg/mL (2 %) injection (CANCELED) 1341 (Given - Provider: Shon Brooks MD)1408 (Given - Provider: Shon Brooks MD) ONCE PRN, Starting Mon05/23/16 at 1341, Until Mon05/23/16 at 1735, Intra- Operative (Intra-Procedure), Routine naloxone (NARCAN) injection 40 mcg 40 mcg, Intravenous, EVERY 5 MIN PRN, St arting 05/23/16 at 1420, Until Mon05/23/16 at 1530, Opioid Reversal, for respiratory rate less than 6 or unresponsive., May repeat every every 5 minutes to i ncrease respiratory rate. DO NOT exceed 120 mcg total dose. Notify anesthesia immediately if administered., PACU Recovery, Routine idgcrnbm-ceyuugcfw-orilrahvjhebm (DEXACI NE) 3.5 mg/g-10,000 unit/g-0.1 % ophthalmic ointment (CANCELED) 1328 (Giv en - Provider: Shon Brooks MD - Comment: 0.25 ml post op) ONCE PRN, Starting 05/23/16 at 1328, Until 05/23/16 at 1735, Intra- Operative (Intra-Procedure), Routine ondansetron (ZOFRAN) injection 4 mg 4 mg, Intravenous, EVERY 30 MIN PRN, Sta rting 05/23/16 at 1420, Until 05/23/16 at 1530, Nausea, May repeat 4 mg once in 30 minutes. If multiple antiemetics ordered, use ondansetron first and i f ineffective use prochlorperazine secon d and if ineffective use promethazine, PACU Recovery povidone-iodine 5 % ophthalmic solution (CANCELED) 1329 (Given - Provider: Shon Brooks MD) ONCE PRN, Starting 05/23/16 at 1329, Until 05/23/16 at 1735, Intra- Operative (Intra-Procedure), Routine promethazine (PHENERGAN) injection 6.25 mg 6.25 mg, Intravenous, EVERY 30 MIN PRN, 2 doses, Starting 05/23/16 at 1420, Until 05/23/16 at 1530, Nausea, If multiple antiemetics ordered, use ondansetron first and if ineffective use prochl orperazine second and if ineffective use promethazine, PACU Norberto very, Routine sodium chloride 0.9 % flush 5-20 mL 5-20 mL, Intravenous, EVERY 1 MIN PRN, S tarting Mon05/23/16 at 1146, Until 05/23/16 at 1530, flush, Flush pertains to all indwelling lines. Flush per protocol found in the job aid using the link pr ovided on this medication record., Day of Surgery (Day of Proced ure), Routine sodium chloride 0.9 % flush 5-20 mL 5-20 mL, Intravenous, EVERY 1 MIN PRN, S tarting 05/23/16 at 1445, Until 05/23/16 at 1735, flush, Flush pertains to all indwelling lines. Flush per protocol found in the job aid using the link provided on this medication record., Routine documented in this encounter Care Teams Health Careers Instructor Relationship Specialty Start Date End Date Anaya Burch MD PCP - General 07/06/10 [address] [place] [id number] documented as of this encounter
--- OUTSIDE RECORDS SUMMARY | 2022-02-21 10:27 | XMS_ITS | Continuity of Care Document ---
:1940 External Reference #:[id number] Author Care Team Providers Name Role Phone Anaya Burch M.D. Care Team Information Division Superintendent Unavail able Anaya Burch M.D. 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 0 12/16/2019 100mg Tablets tablet by mouth Raimundo Burch as directed one hour before sexual activity. Clonazepam 0.5mg take 1 tablet 30tabs F41.9 Anaya J. Tablets every 12 hours Raimundo Burch as needed. Trazodone HCL 50mg Take Three 270tabs G47.00 Anaya J. 00/0 Tablets Tablets By Mouth Raimundo Burch AT Bedtime as Needed Immunizations CPT Code Status Date Vaccine Lot # [id number] Given 10/07/2020 Covid-19 vaccine Moderna, mR NA, LNP-S, PF, 100 mcg/ 0.5 mL 19876 Given 09/09/2020 Covid-19 vaccine Moderna, mR NA, LNP-S, PF, 100 mcg/ 0.5 mL 88053 Given 05/19/2016 Prevnar Pneumococcal PCV13 ( 19Yo+) - [facility] [id number] Supply [id number] Given 05/03/2016 Influenza Vacc, 65+, High Do se, TC Supply [id number] 71045 Given 07/20/2015 Influenza High Dose (Fluzone ) TC Supply [id number] 67417 Given 11/12/2014 Pneumovax Pneumococcal PPSV2 3 Vaccine 2Yrs Or Older [id number] Given 05/09/2013 Influenza Vaccine Split Viru s - Medicare - [id number] Flulaval 76314 Given 11/05/2012 TDaP 7+ Yrs Old - Boostrix/A dacel [id number] 50104 Given 09/11/2007 Pneumovax Pneumococcal PPSV2 3 Vaccine 2Yrs Or Older 71340 Given 09/11/2007 Td (No Pertussis),State Supp lied,7 Yrs Or Older 20976 Given 07/17/2007 Influenza Virus Vaccine, Spl it, Preserv Free, Intradermal Use Vital Signs Date Vital Result Comment 06/03/2019 3:30pm Height 66 inches 5'6 Weight 170.12 lb BMI (Body Mass Index) 27.5 kg/m2 BP Systolic 130 mmHg BP Diastolic 90 mmHg Heart Rate 88 /min 03/27/2018 4:48pm Height 66.75 inches 5'6.75 BP Systolic 118 mmHg BP Diastolic 78 mmHg Heart Rate 60 /min 01/16/2018 11:35am Height 66.75 inches 5'6.75 Weight 169.00 lb BMI (Body Mass Index) 26.7 kg/m2 BP Systolic 162 mmHg BP Diastolic 92 mmHg Heart Rate 60 /min
--- OUTSIDE RECORDS SUMMARY | 2022-02-21 10:27 | XMS_ITS | Encounter Summary ---
:1940 Author Organization [facility] [address] Care Team Providers Name Role Phone Anaya Burch MD Primary Care Provider Reason for Visit Reason Comments Cataract Encounter Details Date Type Department Care Team Description 02/10/2020 Office Visit Ophthalmology at [facility] C Zi Dailey, Epiretinal membrane (ERM) of right eye; [facility] [place] [address] [place] [address] OPHTHALMOLOGY DEPT. [place], [place] [address] Social History Tobacco Use Types [...] documented as of this encounter Progress Notes Zi Dailey MD - 02/10/2020 2:30 PM EDT Assessment/Plan: Curtis Vasquez is a 79 y.o. male with the following ophthalmic issues: 1. Multifocal PCIOL OU 2. ERM OU 3. Minimal hyperopic astigmatism OU Comment: The PCIOLs do not appear significantly decentered, but they are slightly offset above and below the line of sight in each eye. He retains good acuity and overall remains pleased with his vision. I do not know that the lens position has any relationship to his billiard shooting problems. I do not recommend any manipulation or exchange of the IOLs given the open capsules and overall goodfunction. If he wants more expertise in analyzing the effect of the IOL on his billiards, he should see a center specializing in refractive surgery, which would have more sophisticated analytics. I gave him the name of Dr. Muro and Dr. Khanna at [facility]. He expressed satisfaction with the Status Quo and does not feel the need for further evaluation. He will follow with Dr. Jenkins. documented in this encounter Plan of Treatment Not on filedocumented as of this encounter Visit Diagnoses Diagnosis Epiretinal membrane (ERM) of right eye Pseudophakia of both eyes Lens replaced by other means documented in this encounter Care Teams Finishing Wire Sawyer Relationship Specialty Start Date End Date Anaya Burch MD PCP - General 07/06/10 [address] [place] [phone] documented as of this encounter
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
--- OUTSIDE RECORDS SUMMARY | 2022-02-21 10:28 | XMS_ITS | Encounter Summary ---
:1940 Author Organization [facility] [place] [address] Care Team Providers Name Role Phone Anaya Burch MD Primary Care Provider Reason for Visit Reason Comments Blurred Vision The patient presents for pos toperative evaluation after treatment of a portion retinal tear in the left eye. AMBAR Eubanks Encounter Details Date Type Department Care Team Description 01/22/2013 Office Visit Ophthalmology at [facility] C Shon Brooks Horseshoe retinal [facility] MD Yogi tear, left eye Drive [facility] (Primary Dx) [place] [address] [address] [phone] OPHTHALMOLOGY [address] PT. [place], [place] [address] (Wo rk) Social History Tobacco Use Types Packs/Day Years Used Date Former Smoker Alcohol Use Standard Drinks/Week Comments Yes 0.8 (1 standard drink = 0.6 oz pure alco hol) Sex Assigned at Date Recorded Not on file documented as of this encounter Progress Notes Shon Brooks MD - 01/22/2013 6:13 PM EDT Patient stable status post treatment of a retinal tear at 9:00 in the left eye. No new lesions. Goodtreatment reaction Return 4 weeks dilated exam a both eyes. Return stat if any changes. 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
--- OUTSIDE RECORDS SUMMARY | 2022-02-21 10:28 | XMS_ITS | Encounter Summary ---
:1940 Author Organization [facility] Address [address] [place] [address] Care Team Providers Name Role Phone Anaya Burch MD Primary Care Provider Encounter Details Date Type Department Care Team Description 06/03/2019 Results Only [facility] Anaya Burch, [address] [place] [phone] (Wo rk) Social History Tobacco Use Types Packs/Day Years Used Date Former Smoker 0.5 20 Alcohol Use Standard Drinks/Week Comments No 0 (1 standard drink = 0.6 oz pure alcoho l) Sex Assigned at Date Recorded Not on file documented as of this encounter Plan of Treatment Not on filedocumented as of this encounter Procedures Procedure Name Priority Date/Time Associated Diagnosis Comme nts PSA SCREEN Routine 06/03/2019 16:24 EDT Results for this procedure are i n the results section . documented in this encounter Results PSA SCREEN (06/03/2019 16:24 EDT) PSA 1.2 0 - 6.5 ng/ml [facility] Comment: LABORATORY SERVICES Serum PSA concentration should not be interpreted as absolute evidence for the presence or absence of malignant disease. Assayed utilizing Siemens (Gemvara) chemiluminescent technology. ??Values obtained by using different assay methods cannot be used interchangeably. Specimen Blood Performing Organization Address City/State/ZIP Code Phon e Number [facility] [address] [place] [address] SERVICES documented in this encounter Visit Diagnoses Not on filedocumented in this encounter Care Teams Improvement Analyst Relationship Specialty Start Date End Date Anaya Burch MD PCP - General 8/19/09 [address] [place] [phone] documented as of this encounter
--- OUTSIDE RECORDS SUMMARY | 2022-02-21 10:28 | XMS_ITS | Encounter Summary ---
:1940 Author Organization [facility] Address [address] [place] [address] Care Team Providers Name Role Phone Anaya Burch MD Primary Care Provider Reason for Visit Reason Onset Date Comments Appointment Related 11/17/2014 Encounter Details Date Type Department Care Team Description 11/17/2014 Telephone [facility] Zuleyma Ghosh Appoi ntment Related General Surgery - Walker Estrada MD [address] [facility] [address] [facility] [address] [place] [address] [place], [place] [phone] (Wo rk) Social History Tobacco Use Types Packs/Day Years Used Date Never Assessed Sex Assigned at Date Recorded Not on file documented as of this encounter Miscellaneous Notes Telephone Encounter - Magi Varela - 11/19/2014 1636 EDT Curtis returned the call today. He was just released from the hospital. He was wondering what the appt with Dr. Ghosh was for and he stated that one of the dr's in the hospital stated that they ought to do gall bladder surgery sooner rather than later. It was originally discussed for 6 weeks out. Please call to follow up. elephone Encounter - Shamika Gonzalez - 11/17/2014 1346 EDT Patient is scheduled for a follow up with Dr. Ghosh on 12-18-14 @ 9:45am. Please confirm. documented in this encounter Plan of Treatment Not on filedocumented as of this encounter Visit Diagnoses Not on filedocumented in this encounter Care Teams Senior Art Director Relationship Specialty Start Date End Date Anaya Burch MD PCP - General 04/01/[address] [place] [phone] documented as of this encounter
--- OUTSIDE RECORDS SUMMARY | 2022-02-21 10:28 | XMS_ITS | Encounter Summary ---
:1940 Author Organization [facility] Address [address] [place] [address] Care Team Providers Name Role Phone Anaya Burch MD Primary Care Provider Encounter Details Date Type Department Care Team Description 08/25/2016 Historical Results [facility], Only [facility] Lab - Main [address] [facility] [address] [place] [address] [place], [place] [phone] (Wo rk) Social History Tobacco Use Types Packs/Day Years Used Date Former Smoker 0.5 20 Alcohol Use Standard Drinks/Week Comments No 0 (1 standard drink = 0.6 oz pure alcoho l) Sex Assigned at Date Recorded Not on file documented as of this encounter Plan of Treatment Not on filedocumented as of this encounter Procedures Procedure Name Priority Date/Time Associated Diagnosis Comme [facility] SURGICAL PATHOLOGY Routine 08/25/2016 Results f or this procedure are i n the results section . documented in this encounter Results SURGICAL PATHOLOGY (08/25/2016) Specimen Narrative [facility] - 017 10:26 EST Name: MAGDALENA BANEGAS ?: 44 ?Age/Sex: 78/M ?Unit#: [id number] ? Loc: END ? Status: DEP CLI ?? Reg Date: 08/25/16 ? Pt.Phone Number : ? Specimen: [id number] ?ST ATUS: SOUT ?Spec Date:08/25/16 ? Physician Copies: ?Gerson Young MD ?? Tissues: A ?? Endoscopy specimen ([place]) ?Anaya Burch CPT: 71342 ?? Units: ??1 ?FINAL DIAGNOSIS ? DESCENDING COLON, POLYP, BIOPSY; ? - Sessile serrated adenoma. ? GROSS DESCRIPTION ? Received in formalin labeled with the patient's name and Descending colon ? polyp cold snare is a 0.4 cm guzman mucosal fragment along with a 0.4 cm piece of ? yellow vegetable-like material, e s 1. ??CP ?? PREOP DX/CLINICAL HISTORY ?Screening colonoscopy Signed ____(signature on file)____ Catie Mina M.D. 08/26/16 By the signature above, the attending ph ysician certifies that he/she has personally conducted a gross and/or microscopic exa mination of the described specimens and rendered or confirmed the above diagnosi s. Test Performed by [facility], [address] [place] [address] Fuse Cup Expander: Catie Floyd MD PHD Performing Organization Address City/State/[facility] Code Phon e Number [facility] [address] [place] [address] LAB documented in this encounter Visit Diagnoses Not on filedocumented in this encounter Care Teams Health And Wellness Sales Consultant Relationship Specialty Start Date End Date Anaya Burch MD PCP - General 04/01/[address] [place] [phone] documented as of this encounter
--- OUTSIDE RECORDS SUMMARY | 2022-02-21 10:28 | XMS_ITS | Encounter Summary ---
:1940 Author Organization [facility] [place] [address] Care Team Providers Name Role Phone Anaya Burch MD Primary Care Provider Reason for Visit Reason Comments Eye Problem The patient presents for con sultation regarding a retinal tear. AMBAR SERRANO Encounter Details Date Type Department Care Team Description 01/11/2013 Office Visit Ophthalmology at [facility] C Shon Brooks Horseshoe retinal [facility] MD Yogi tear, left eye Drive [facility] (Primary Dx) [place] [phone] OPHTHALMOLOGY DE PT. [place], [place] [address] (Wo rk) Social History Tobacco Use Types Packs/Day Years Used Date Former Smoker Alcohol Use Standard Drinks/Week Comments Yes 0.8 (1 standard drink = 0.6 oz pure alco hol) Sex Assigned at Date Recorded Not on file documented as of this encounter Progress Notes Shon Brooks MD - 01/13/2013 12:56 PM EDT Dear ; Just a very brief note regarding this gentleman whom you asked me to see for urgent consultation on January 11, 2013. In brief summary, he has a small retinal tear in the equatorial region at about 9:00 inthe left eye. This was treated promptly with laser. He will return to see me next week or immediately for any flashes floaters or other changes in the interim. Thank you kindly for asking me to see him. I will keep you informed regarding his progress Respectfully Shon documented in this encounter Plan of Treatment Not on filedocumented as of this encounter Visit Diagnoses Diagnosis Horseshoe retinal tear, left eye - Prima ry Horseshoe tear of retina without detachm ent documented in this encounter Care Teams Woods Boss Relationship Specialty Start Date End Date Anaya Burch MD PCP - General 07/06/[address] [place] [address] [place] [phone] documented as of this encounter
--- OUTSIDE RECORDS SUMMARY | 2022-02-21 10:28 | XMS_ITS | Encounter Summary ---
:1940 Author Organization [facility] Address [address] [place] [address] Care Team Providers Name Role Phone Anaya Burch MD Primary Care Provider Reason for Visit Reason Onset Date Comments Follow-up 01/15/2015 Encounter Details Date Type Department Care Team Description 01/15/2015 Telephone [facility] General Babar Ghosh, Follow-up Surgery - [place] [address] [place] [address] [address] [place] [address] [place] [phone] (Wo rk) Social History Tobacco Use Types Packs/Day Years Used Date Former Smoker 0.5 20 Alcohol Use Standard Drinks/Week Comments No 0 (1 standard drink = 0.6 oz pure alcoho l) Sex Assigned at Date Recorded Not on file documented as of this encounter Miscellaneous Notes Telephone Encounter - Zuleyma Ghosh MD - 01/15/2015 0832 EDT Pt little uncomfortable overnight feels better this morning. No dietary issues. documented in this encounter Plan of Treatment Not on filedocumented as of this encounter Visit Diagnoses Not on filedocumented in this encounter Care Teams Fast Food Shift Lead Relationship Specialty Start Date End Date Anaya Burch MD PCP - General 04/01/[address] [place] [phone] documented as of this encounter
--- OUTSIDE RECORDS SUMMARY | 2022-02-21 10:28 | XMS_ITS | Encounter Summary ---
:1940 [place] [address] Care Team Providers Name Role Phone Anaya Burch MD Primary Care Provider Encounter Details Date Type Department Care Team Description 05/23/2016 Hospital Encounter Same Day Program at Santos Brooks MD [facility] OPHTHALMOLOGY [place] [address] [place], [place] [phone] (Wo rk) [phone] Social History Tobacco Use Types Packs/Day Years [...] ice packs Call the Eye Clinic at [phone] and ask for the doctor friction saw operator if you having severe pain, nauseaor vomiting [...] via wheelchair with nurse. Ride home by friend Dionte. documented in this encounter H&P Notes Shon [...] Brooks MD - 05/23/2016 2:47 PM EDT [facility] Operative Note Patient Name: Curtis Vasquez : [id number] MR#: [id number] Case Date: 05/23/2016 Surgeon: Surgeon(s) and Role: [...] He is to call the eye physician friction saw operator with any problems, questions, or concerns. Brief Op Note - Shon Brooks MD - 05/23/2016 2:46 PM EDT Brief Operative Note Patient Name: Curtis Vasquez : [id number] MR#: [id number] Case Date: 05/23/2016 Surgeon: Surgeon(s) and Role: [...] ORDR/RSLT documented in this encounter Visit Diagnoses Not [...] Given 05/23/2016 12:01 PM EDT 1 drop lactated ringers infusion 1,000 New Bag 05/23/2016 12:14 PM ED T 1,000 mLs 100 mL/hr mL 1,000 mL, at 100 mL/hr, Intravenous, CONTINUOUS, Starting on Mon05/23/16 at 1215, Until Mon05/23/16 at 1530, Day of Surgery (Day of Procedure) moxifloxacin (VIGAMOX) 0.5 % ophthalmic Given 05/23/2016 12:11 P M EDT 1 drop solution 1 drop 1 drop, Right Eye, EVERY 5 MIN, 3 doses, First dose on Mon05/23/16 at 1215, Last dose on Mon05/23/16 at 1225, Day of Surgery (Day of Procedure), Routine Given 05/23/2016 12:06 PM EDT 1 drop Given 05/23/2016 12:01 PM EDT 1 drop PHENYLephrine (MYDFRIN) 2.5 % ophthalmic Given 05/23/2016 12:11 PM EDT 1 drop solution 1 drop 1 drop, Right Eye, EVERY 5 MIN, 3 doses, First dose on Mon05/23/16 at 1215, Last dose on Mon05/23/16 at 1225, Day of Surgery (Day of Procedure), Routine Given 05/23/2016 12:06 PM EDT 1 drop Given 05/23/2016 12:01 PM EDT 1 drop prednisoLONE acetate (PRED FORTE) 1 % Given [...] Brooks MD) ONCE PRN, Starting Mon05/23/16 at 1325, Until Mon05/23/16 at 1735, Intra- Operative (Intra-Procedure), Routine BUpivacaine (PF) (MARCAINE) 0.75 % (7.5 mg/mL) injection (CANCEL ED) 1341 (Given - Provider: Shon Brooks MD)1408 (Given - Provider: Shon Brooks MD) ONCE PRN, Starting Mon05/23/16 at 1341, Until Mon05/23/16 at 1735, Intra- Operative (Intra-Procedure), Routine ceFAZolin (ANCEF) injection (CANCELED) 1327 (Given - Provider: Shon Brooks MD - Comment: sc post op) ONCE PRN, Starting Mon05/23/16 at 1327, Until Mon05/23/16 at 1735, Intra- Operative (Intra-Procedure), Routine dexamethasone (DECADRON) injection (CANCELED) 1325 (Given - Provider: Shon Brooks MD - Comment: sc post op) ONCE PRN, Starting Mon05/23/16 at 1325, Until Mon05/23/16 at 1735, Intra- Operative (Intra-Procedure), Routine dorzolamide-timolol (PF) (COSOPT) 2-0.5 % ophthalmic solution (C ANCELED) 1325 (Given - Provider: Shon Brooks MD - Comment: post op) ONCE PRN, Starting 05/23/16 at 1325, Until 05/23/16 at 1735, Intra- Operative (Intra-Procedure), Routine EPINEPHrine (PF) injection Soln (CANCELED) 1328 (Given - Provider: Shon Brooks MD - Comment: in bss+) ONCE PRN, Starting 05/23/16 at 1328, Until Mon05/23/16 at 1735, Intra- Operative (Intra-Procedure), Routine fentaNYL (PF) 50 mcg/mL 2mL syringe 25 mcg, Intravenous, EVERY 5 MIN PRN, St arting 05/23/16 at 1420, Until Mon05/23/16 at 1530, Pain, for 1-4 pain score, for 1-4 pain score Hold for respiratory rate less than 10 per minute. Maximum d ose: 250 mcg over one hour., PACU Recovery, Routine fentaNYL (PF) 50 mcg/mL 2mL syringe 50 mcg, Intravenous, EVERY 5 MIN PRN, St arting 05/23/16 at 1420, Until Mon05/23/16 at 1530, Pain, for 5-10 pain score, [...] mL), Subcutaneous, ONCE PRN, 1 dose, Starting 05/23/16 at 1445, Until 05/23/16 at 1735, for discomfort with PIV insertion, Routine lidocaine (XYLOCAINE) 20 mg/mL (2 %) injection (CANCELED) 1341 (Given - Provider: Shon Brooks MD)1408 (Given - Provider: Shon Brooks MD) ONCE PRN, Starting 05/23/16 at 1341, Until 05/23/16 at 1735, Intra- Operative (Intra-Procedure), Routine naloxone (NARCAN) injection 40 mcg 40 mcg, Intravenous, EVERY 5 [address] PRN, St arting 05/23/16 at 1420, Until 05/23/16 at 1530, Opioid Reversal, for respiratory rate less than 6 or unresponsive., May repeat every every 5 minutes to i ncrease respiratory rate. DO NOT exceed 120 mcg total dose. Notify anesthesia immediately if administered., PACU Recovery, Routine qmprkxny-tywynuyrr-lhzmxzvjxvfsg (DEXACI NE) 3.5 mg/g-10,000 unit/g-0.1 % ophthalmic ointment (CANCELED) 1328 (Giv en - Provider: Shon Brooks MD - Comment: 0.25 ml post op) ONCE PRN, Starting Mon05/23/16 at 1328, Until Mon05/23/16 at 1735, Intra- Operative (Intra-Procedure), Routine ondansetron (ZOFRAN) injection 4 mg 4 mg, Intravenous, EVERY 30 MIN PRN, Sta rting Mon05/23/16 at 1420, Until 05/23/16 at 1530, Nausea, [...] 1 MIN PRN, S tarting 05/23/16 at 1146, Until 05/23/16 at 1530, flush, [...] Routine documented in this encounter Care Teams Paste Mixer Relationship Specialty Start Date End Date Anaya Burch MD PCP - General 07/06/10 [address] [place] [phone] documented as of this encounter
--- OUTSIDE RECORDS SUMMARY | 2022-02-21 10:28 | XMS_ITS | Encounter Summary ---
:1940 Author Organization [facility] Address [address] [place] [address] Care Team Providers Name Role Phone Anaya Burch MD Primary Care Provider Encounter Details Date Type Department Care Team Description 10/27/2020 Results Only Imaging [facility] [place], [facility] Radiology Resul ts [address] [facility] [address] [place] [address] [place], [place] [phone] (Wo rk) Social History Tobacco Use Types Packs/Day Years Used Date Former Smoker 0.5 20 Alcohol Use Standard Drinks/Week Comments No 0 (1 standard drink = 0.6 oz pure alcoho l) Sex Assigned at Date Recorded Not on file documented as of this encounter Plan of Treatment Not on filedocumented as of this encounter Procedures Procedure Name Priority Date/Time Associated Diagnosis Comme nts XR HAND RIGHT 3 OR 10/27/2020 19:08 Resul ts for this MORE VIEWS EDT procedure are i n the results section. documented in this encounter Results XR HAND RIGHT 3 OR MORE VIEWS (10/27/2020 19:08 EDT) Specimen Narrative [facility] - 10/27/2020 19:08 EDT ? EXAM: RADIOLOGY/HAND RIGHT 3+VIEW ? EX. D/ (1845) ? CLINICAL INFORMATION: ? right hand struck by object ? PROCEDURE INFORMATION: ? Exam: XR Right Hand ? Exam date and time: 10/27/2020 6:3 1 PM ? Age: 80 years old ? Clinical indication: Pain; Hand; Right; Additional info: Right ? hand struck by object ? TECHNIQUE: ? Imaging protocol: XR Right hand. ? Views: 3 or more views. ? COMPARISON: ? No relevant prior studies availab le. ? FINDINGS: ? 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 ? Mild degenerative changes of the 1st MCP joint. Mild ? degenerative changes of multiple interphalangeal joints. ? Degenerative changes of the right radiocarpal joint. No acute ? fracture or dislocation. Moderate degenerative changes of the ? second MCP joint.. ? Soft tissues: Normal. ? IMPRESSION: ? No acute fracture or dislocation. ? REPORT SIGNED IN OTHER VENDOR SYSTEM 10/27/2020 ?Reported B y: Sandra Agrawal MD ? CC: ? Transcribed Date/Time: 10/27/2020 (1908) ? Tester Equipment: ? Printed Date/Time: 10/27/2020 ( 08) ? PAGE 1 ? Mariann d Report ? Procedure Note Sandra Agrawal MD - 10/27/2020 EXAM: RADIOLOGY/HAND RIGHT 3+VIEW EX. D / (1846) CLINICAL INFORMATION: right hand struck by object PROCEDURE INFORMATION: Exam: XR Right Hand Exam date and time: 10/27/2020 6:31 PM Age: 80 years old Clinical indication: Pain; Hand; Right; Additional info: Right hand struck by object TECHNIQUE: Imaging protocol: XR Right hand. Views: 3 or more views. COMPARISON: No relevant prior studies available. FINDINGS: Bones/joints: Severe degenerative lindsey es of the 1st CMC joint. Mild degenerative changes of the 1st MC P joint. Mild degenerative changes of multiple interp halangeal joints. Degenerative changes of the right radio carpal joint. No acute fracture or dislocation. Moderate degen erative changes of the second MCP joint.. Soft tissues: Normal. IMPRESSION: No acute fracture or dislocation. REPORT SIGNED IN OTHER VENDOR SYSTEM 10/27/2020 Reported By: Sandra Agrawal MD CC: Transcribed Date/Time: 10/27/2020 (1907 ) Tester Equipment: Printed Date/Time: 10/27/2020 (1907) PAGE 1 Signed Report Performing Organization Address City/State/ZIP Code Phon e Number [facility] documented in this encounter Visit Diagnoses Not on filedocumented in this encounter Care Teams Principle Industrial Hygienist Relationship Specialty Start Date End Date Anaya Burch MD PCP - General 04/01/[address] [place] [address] [phone] documented as of this encounter
--- OUTSIDE RECORDS SUMMARY | 2022-02-21 10:28 | XMS_ITS | Encounter Summary ---
:1940 Author Organization [facility] Address [facility] [place] [address] Care Team Providers Name Role Phone Anaya Burch MD Primary Care Provider Reason for Visit Reason Comments Procedure FOCAL RX OS for retinal tear Encounter Details Date Type Department Care Team Description 01/11/2013 Procedure visit Ophthalmology at [facility] C Cecilia, Retinal hole or [facility] Shon Calix MD tear, left Drive [facility] (Primary Dx) [place] [address] OPHTHALMOLOGY DEPT. [phone] [place], [place] 0375 (Wo rk) Social History Tobacco Use Types Packs/Day Years Used Date Former Smoker Alcohol Use Standard Drinks/Week Comments Yes 0.8 (1 standard drink = 0.6 oz pure alco hol) Sex Assigned at Date Recorded Not on file documented as of this encounter Progress Notes Shon Brooks MD - 01/13/2013 5:48 PM EDT Return one week for dilated examination of left eye documented in this encounter Plan of Treatment Not on filedocumented as of this encounter Procedures Procedure Name Priority Date/Time Associated Diagnosis Comme nts REPAIR RETINAL Routine 01/13/2013 5:48 PM Retinal hole or Resu lts for this BREAK(S)-LASER - OS EDT tear, left procedur e are in - LEFT EYE the results section. documented in this encounter Results Repair Retinal Break(s) - Laser - OS - Left Eye (01/13/2013 5:48 PM EDT) P athologist Signature Laser 112 Applications Laser [employer] Anatomical Region Laterality Modality Other Specimen (Source) Anatomical Location Collection Method / Collectio n Time Received Time / Laterality Volume Shon Brooks MD OPHTHALMOLOGY SERVICES ORDER RAISA documented in this encounter Visit Diagnoses Diagnosis Retinal hole or tear, left - Primary Retinal defect, unspecified documented in this encounter Care Teams Integration Project Manager Relationship Specialty Start Date End Date Anaya Burch MD PCP - General 07/06/[address] [place] [phone] documented as of this encounter
--- OUTSIDE RECORDS SUMMARY | 2022-02-21 10:28 | XMS_ITS | Encounter Summary ---
:1940 [place] [address] Care Team Providers Name Role Phone Anaya Burch MD Primary Care Provider Reason for Visit Reason Onset Date Comments Medication Refill 01/03/2011 Encounter Details Date Type Department Care Team Description 01/03/2011 Refill Orthopaedics at [facility] Giancarlo Diaz MD [facility] [place] [phone] ORTHOPAEDIC SURGERY [phone] [place], [place] 0[address] (Wo rk) Social History Tobacco Use Types Packs/Day Years Used Date Never Assessed Sex Assigned at Date Recorded Not on file documented as of this encounter Plan of Treatment Not on filedocumented as of this encounter Visit Diagnoses Not on filedocumented in this encounter Care Teams Lambskin Trimmer Relationship Specialty Start Date End Date Anaya Burch MD PCP - General 07/06/[address] [place] [phone] documented as of this encounter
--- OUTSIDE RECORDS SUMMARY | 2022-02-21 10:28 | XMS_ITS | Encounter Summary ---
:1940 Author Organization [facility] Address [address] [place] [address] Care Team Providers Name Role Phone Anaya Burch MD Primary Care Provider Reason for Visit Reason Comments Follow-up post op gall bladder removal Encounter Details Date Type Department Care Team Description 01/29/2015 Office Visit [facility] Zuleyma Ghosh Gall stone General Surgery - MD Natalie pancreatitis (Primary [place] [address] Dx) 130 [facility] [address] [place] [address] [phone] Social History Tobacco Use Types Packs/Day Years Used Date Former Smoker 0.5 20 Alcohol Use Standard Drinks/Week Comments No 0 (1 standard drink = 0.6 oz pure alcoho l) Sex Assigned at Date Recorded Not on file documented as of this encounter Progress Notes Zuleyma Ghosh MD - 01/29/2015 0933 EDT Subjective: Curtis Vasquez presents to the clinic 2 weeks following laparoscopic cholecystectomy. Eating a regular diet without difficulty. Bowel movements are normal. The patient is not having any pain. Objective: There were no vitals taken for this visit. General: alert and cooperative Abdomen: soft, bowel sounds active, non-tender Incision: healing well, no drainage, no erythema, well approximated, mild bruising at umbilicus Assessment: Doing well postoperatively. Plan: 1. Operative findings reviewed and discussed with the patient. The patholgy report was reviewed with the patient. I supplied him with a copy of the report. 2. Wound care discussed. 3. Pt is to increase activities as tolerated. 4. Follow up as needed. documented in this encounter Plan of Treatment Not on filedocumented as of this encounter Visit Diagnoses Diagnosis Gall stone pancreatitis - Primary Acute pancreatitis documented in this encounter Care Teams Manager Program Relationship Specialty Start Date End Date Anaya Burch MD PCP - General 04/01/[address] [place] [address] [phone] documented as of this encounter
--- OUTSIDE RECORDS SUMMARY | 2022-02-21 10:28 | XMS_ITS | Encounter Summary ---
:1940 Author Organization [facility] Address [address] [place] [address] Care Team Providers Name Role Phone Anaya Burch MD Primary Care Provider Encounter Details Date Type Department Care Team Description 06/03/2019 Hospital Encounter [facility]- Anaya Burch [facility] MD Melody [address] [address] [place], [place] [phone] (Wo rk) Social History Tobacco Use Types Packs/Day Years Used Date Former Smoker 0.5 20 Alcohol Use Standard Drinks/Week Comments No 0 (1 standard drink = 0.6 oz pure alcoho l) Sex Assigned at Date Recorded Not on file documented as of this encounter Discharge Diagnoses Diagnosis Z12.5 Encounter for screening for malign ant neoplasm of prostate-Z12.5[ICD-10-CM] documented in this encounter Medications at Time of Discharge Medication Sig Dispensed Refills Start Date End Date clonazePAM (KLONOPIN) 0.5 mg Take 0.5 mg by 0 tablet mouth 2 times daily Glucosamine HCl 1,500 mg tablet Take by mouth 0 Methylsulfonylmethane (MSM) Take by mouth 0 1,000 mg capsule Multivitamins with Minerals Take 1 Tab by 0 tablet mouth daily NAPROXEN SODIUM (ALEVE ORAL) Take by mouth 0 traZODone (DESYREL) 50 mg Take 100 mg by 0 tablet mouth at bedtime as needed for Sleep documented as of this encounter Discharge Disposition Disposition Code Departure Means Destination Home or Self Care documented in this encounter Plan of Treatment Not on filedocumented as of this encounter Visit Diagnoses Not on filedocumented in this encounter Care Teams Hand Icer Relationship Specialty Start Date End Date Anaya Burch MD PCP - General 04/01/[address] [place] [phone] documented as of this encounter
--- OUTSIDE RECORDS SUMMARY | 2022-02-21 10:28 | XMS_ITS | Encounter Summary ---
:1940 Author Organization [facility] Address [address] [place] [address] Care Team Providers Name Role Phone Anaya Burch MD Primary Care Provider Encounter Details Date Type Department Care Team Description 08/24/2015 Historical Results [facility] - Madhav Be Only [facility] Radiology Resul berkley Burr MD [address] [facility] [address] [place] [address] [place], [place] [phone] Social History Tobacco Use Types Packs/Day Years Used Date Former Smoker 0.5 20 Alcohol Use Standard Drinks/Week Comments No 0 (1 standard drink = 0.6 oz pure alcoho l) Sex Assigned at Date Recorded Not on file documented as of this encounter Plan of Treatment Not on filedocumented as of this encounter Procedures Procedure Name Priority Date/Time Associated Diagnosis Comme nts XR RIBS LEFT WITH 08/24/2015 14:15 Result s for this PA CHEST EST procedure are i n the results section. documented in this encounter Results XR RIBS LEFT WITH PA CHEST (08/24/2015 14:15 EST) Specimen Narrative [facility] - 08/24/2015 14:20 EST ? EXAM: RADIOLOGY/RIBS LEFT 3+VIEW(W/PA SHARDA EX. D/ (1413) ? CLINICAL INFORMATION: ? FALL,PAIN ? Indication: Status post fall. Rib pain. ? Comparison: None. ? Technique: Upright PA view of the chest and 2 views left ribs were ? obtained. ? Findings: There are nondisplaced fractures of the posterior lateral ? aspect of the left 7th, 8th and 9 th ribs. No pleural effusion or ? pneumothorax is seen. No underlyi ng osteolytic or osteoblastic lesion ? is identified. The cardiomediasti nal silhouette and pulmonary ? vasculature is within normal limi ts. The lungs are clear. ? Impression: ? 1. Nondisplaced fractures of the posterior lateral aspect of the left ? 7th, 8th and 9th ribs. ? REPORT SIGNED IN OTHER VENDOR SYSTEM 08/24/2015 ?Reported B y: Noman Harley MD ? CC: ? Transcribed Date/Time: 08/24/2015 (1420) ? Brand Lead: ? Printed Date/Time: 01/23/2019 (08 34) ? PAGE 1 ? Mariann d Report ? Procedure Note Noman Harley MD - 06/19/2019 EXAM: RADIOLOGY/RIBS LEFT 3+VIEW(W/PA C HE EX. D/ (1413) CLINICAL INFORMATION: FALL,PAIN Indication: Status post fall. Rib pain. Comparison: None. Technique: Upright PA view of the chest and 2 views left ribs were obtained. Findings: There are nondisplaced fractu res of the posterior lateral aspect of the left 7th, 8th and 9th rib s. No pleural effusion or pneumothorax is seen. No underlying ost eolytic or osteoblastic lesion is identified. The cardiomediastinal si lhouette and pulmonary vasculature is within normal limits. Th e lungs are clear. Impression: 1. Nondisplaced fractures of the veterinarian assistant ior lateral aspect of the left 7th, 8th and 9th ribs. REPORT SIGNED IN OTHER VENDOR SYSTEM 08/24/2015 Reported By: Noman Harley MD CC: Transcribed Date/Time: 08/24/2015 (1420 ) Brand Lead: Printed Date/Time: 01/23/2019 (5810) PAGE 1 Signed Report Performing Organization Address City/State/ZIP Code Phon e Number [facility] documented in this encounter Visit Diagnoses Not on filedocumented in this encounter Care Teams Mine Development Engineer Relationship Specialty Start Date End Date Anaya Burch MD PCP - General 04/01/[address] [place] [phone] documented as of this encounter
--- OUTSIDE RECORDS SUMMARY | 2022-02-21 10:28 | XMS_ITS | Clinical Summary ---
:1940 Author Organization [facility] Address [address] [place] [address] Care Team Providers Name Role Phone Anaya Burch MD Primary Care Provider Allergies Active Allergy Reactions Severity Noted Date Comments Sulfa (Sulfonamide Antibiotics) GI upset 5 Tetracyclines GI upset Medium 01/29/2015 Medications Medication Sig Dispensed Refills Start Date End Date Status traZODone (DESYREL) 50 mg Take 100 mg 0 Active tablet by mouth at bedtime as needed for Sleep clonazePAM (KLONOPIN) 0.5 Take 0.5 mg 0 Active mg tablet by mouth 2 times daily NAPROXEN SODIUM (ALEVE Take by mouth 0 Active ORAL) Glucosamine HCl 1,500 mg Take by mouth 0 Active tablet Methylsulfonylmethane (MSM) Take by mouth 0 Active 1,000 mg capsule Multivitamins with Minerals Take 1 Tab by 0 Active tablet mouth daily Active Problems Problem Noted Date Gall stone pancreatitis 12/18/2014 Surgical History Surgery Date Site/Laterality Comments APPENDECTOMY HERNIA REPAIR JOINT REPLACEMENT Family History Medical History Relation Name Comments Arthritis Father Cancer Father Relation Name Status Comments Father Social History Tobacco Use Types Packs/Day Years Used Date Former Smoker 0.5 20 Alcohol Use Standard Drinks/Week Comments No 0 (1 standard drink = 0.6 oz pure alcoho l) Sex Assigned at Date Recorded Not on file Last Filed Vital Signs Vital Sign Reading Time Taken Comments Blood Pressure 135/85 12/18/2014 0942 EDT Pulse 71 12/18/2014 0942 EDT Temperature - - Respiratory Rate 18 12/18/2014 0942 EDT Oxygen Saturation - - Inhaled Oxygen Concentration - - Weight 75.3 kg (166 lb) 12/18/2014 0942 EDT Height 174 cm (5' 8.5) 12/18/2014 0942 EDT Body Mass Index 24.87 12/18/2014 0942 EDT Plan of Treatment Health Maintenance Due Date Last Done Comments Fall Risk Screening 2007 Insurance Payer Benefit Plan Subscriber ID Effective Phone Address Typ e / Group Dates [employer] [id number] 2020-Pre [phone] [employer] MEDICARE sent [phone] [place] [address] Curtis Vasquez Personal/Family Self 1940 [address] [address] Curtis Vasquez Personal/Family Self 1940 [address] [place] [address] Curtis Vasquez Personal/Family Self 1940 [address]Home) [place] [address] PedroCurtis Kaylin Personal/Family Self 1940 [address] (Home) [place] [address] Care Teams Hyperbaric Tech Relationship Specialty Start Date End Date Anaya Burch MD PCP - General 04/01/[address] [place] [phone]
--- OUTSIDE RECORDS SUMMARY | 2022-02-21 10:28 | XMS_ITS | Continuity of Care Document ---
:1940 External Reference #:[id number] Author Care Team Providers Name Role Phone Anaya Bucrh M.D. Care Team Information Order Worker Unavail able Anaya Burch M.D. Primary Care [...] CPT Code Status Date Vaccine Lot # [id number] Given 10/07/2020 Covid-19 vaccine Moderna, mR NA, LNP-S, PF, 100 mcg/ 0.5 mL [id number] Given 09/09/2020 Covid-19 vaccine Moderna, mR NA, LNP-S, PF, 100 mcg/ 0.5 mL 90079 Given 05/19/2016 Prevnar Pneumococcal PCV13 ( 19Yo+) - [facility] [id number] Supply 44862 Given 05/03/2016 Influenza Vacc, 65+, High Do se, TC Supply [id number] 47586 Given 07/20/2015 Influenza High Dose (Fluzone ) TC Supply 65yo+ 32837 Given 11/12/2014 Pneumovax Pneumococcal PPSV2 3 Vaccine 2Yrs Or Older [id number] Given 05/09/2013 Influenza Vaccine Split Viru s - Medicare - [id number] Flulaval 54783 Given 11/05/2012 TDaP 7+ Yrs Old - Boostrix/A dacel [id number] 95767 Given 09/11/2007 Pneumovax Pneumococcal PPSV2 3 Vaccine 2Yrs Or Older 62380 Given 09/11/2007 Td (No Pertussis),State Supp lied,7 Yrs Or Older 38341 Given 07/17/2007 Influenza Virus Vaccine, Spl it, [...]
--- OUTSIDE RECORDS SUMMARY | 2022-02-21 10:28 | XMS_ITS | Encounter Summary ---
:1940 Author Organization [facility] Address [address] [place] [address] Care Team Providers Name Role Phone Anaya Burch MD Primary Care Provider Encounter Details Date Type Department Care Team Description 08/24/2015 Hospital [phone] [place] [address] (Work) [place] [address] Social History Tobacco Use Types Packs/Day Years Used Date Former Smoker 0.5 20 Alcohol Use Standard Drinks/Week Comments No 0 (1 standard drink = 0.6 oz pure alcoho l) Sex Assigned at Date Recorded Not on file documented as of this encounter Medications at Time of Discharge [...] Code Departure Means Destination Home or Self Penitentiary documented in this encounter Plan of Treatment Not on filedocumented as of this encounter Visit Diagnoses Not on filedocumented in this encounter Care Teams Operating Engineer Relationship Specialty Start Date End Date Anaya Burch MD PCP - General 04/01/[address] [place] [phone] documented as of this encounter
--- OUTSIDE RECORDS SUMMARY | 2022-02-21 10:28 | XMS_ITS | Encounter Summary ---
:1940 Author Organization [facility] Address [address] [place] [address] Care Team Providers Name Role Phone Anaya Burch MD Primary Care Provider Reason for Visit Reason Comments Cholelithiasis Encounter Details Date Type Department Care Team Description 12/18/2014 Office Visit [facility] Zuleyma Ghosh Gall stone General Surgery - MD Natalie pancreatitis (Primary [place] [address] Dx) [address] [facility] [address] [place] [phone] Social History Tobacco Use Types Packs/Day Years [...] Body Mass Index 24.87 12/18/2014 0942 EDT documented in this encounter Progress Notes Zuleyma Ghosh MD - 12/18/2014 1002 EDT Gallbladder Surgery Preoperative History and Physical Subjective: Patient is a 74 y.o. male presenting with abdominal pain. Onset of symptoms was abrupt causing gallstone pancreatitis. He was admitted to the hospital in the beginning of November Previous studies includeCT scan, MRI and ultrasound. The abdominal pains are completely resolved at this time. I did see the patient during his hospitalization. Patient Active Problem List Diagnosis ??? Gall stone pancreatitis History reviewed. No pertinent past medical history. (Not in a hospital admission) Allergies Allergen Reactions ??? Sulfa (Sulfonamide Antibiotics) GI upset Past Surgical History Procedure Laterality Date ??? Appendectomy ??? Hernia repair ??? Joint replacement Family History Problem Relation Age of Onset ??? Cancer Father ??? Arthritis Father History Substance Use Topics ??? Smoking status: Former Smoker -- 0.50 packs/day for 20 years ??? Smokeless tobacco: Not on file ??? Alcohol Use: No Work status: Retired but active with outdoor work Review of Systems: Review of Systems 12/18/2014 Constitutional Weight loss;Malaise/Fatigue Head & Neck Tinnitus Psychiatric Nervous/Anxious;Insomnia Gastrointestinal Abdominal pain Musculoskeletal Joint pain All other systems reviewed and are negative. Objective: BP 135/85 Pulse 71 Resp 18 Ht 174 cm (68.5) Wt 75.297 kg (166 lb) BMI 24.87 kg/m2 Physical Examination: General: alert, active, in no acute distress Neck: normal Heart: regular rate Lungs: clear - bilaterally Abdomen: Abdomen soft, non-tender. BS normal. No masses, organomegaly Musculoskeletal: no cyanosis, clubbing, or edema Skin: Normal Neurologic: Grossly normal Behavioral: Pleasant with normal affect. Laboratory: Lipase and LFT's resolved to normal Imaging: MRI and US shows multiple small gall stones Assessment: Gall stone pancreatitis. Possible two etiologies alcohol and gall stones. He has stopped drinking but I don't think this was necessarily the culprit based on his presentation. Patient wishes to proceed with surgical intervention. Plan: I reviewed with the patient the pathophysiology of gall stones and gall bladder disease and pancreatitis. He has a 30 % risk of another bout of pancreatitis if he does nothing. I supplied him with additional information and a booklet about gall bladder disease and surgery. Also I reviewed with the patient the surgical process and what to expect during the postoperative period. I did state that a minority of patients can experience gas, bloating or diarrhea after cholecystectomy. Generally these symptoms resolve several months after surgery. We discussed the risks of surgery include bleeding, infection, injury to another organ or injury to bile duct causing bile leak. As well there is always a risk of converting to an open procedure. The risks of general anesthetic including [place], CVA, sudden or even reaction to anesthetic medicationswas discussed. The patient understands the risks, any and all questions were answered to the patient's satisfaction and they freely signed the consent for operation. Surgery will be scheduled at an 8 week interval from his initial attack to assure hermes inflammation has resolved. documented in this encounter Plan of Treatment Not on filedocumented as of this encounter Visit Diagnoses Diagnosis Gall stone pancreatitis - Primary Acute pancreatitis documented in this encounter Historical Medications This list may reflect changes made after this encounter. Medication Sig Dispensed Refills Start Date End Date Multivitamins with Minerals Take 1 Tab by 0 tablet mouth daily Methylsulfonylmethane (MSM) Take by mouth 0 1,000 mg capsule Glucosamine HCl 1,500 mg tablet Take by mouth 0 NAPROXEN SODIUM (ALEVE ORAL) Take by mouth 0 clonazePAM (KLONOPIN) 0.5 mg Take 0.5 mg by 0 tablet mouth 2 times daily traZODone (DESYREL) 50 mg Take 100 mg by 0 tablet mouth at bedtime as needed for Sleep added in this encounter Care Teams Structural Steel Erection Supervisor Relationship Specialty Start Date End Date Anaya Burch MD PCP - General 04/01/[address] [place] [phone] documented as of this encounter
--- OUTSIDE RECORDS SUMMARY | 2022-02-21 10:28 | XMS_ITS | Encounter Summary ---
:1940 Author Organization [facility] Address [address] [place] [address] Care Team Providers Name Role Phone Anaya Burch MD Primary Care Provider Encounter Details Date Type Department Care Team Description 11/18/2014 Results Only [facility] Best Castaneda MD Laboratory Services - [address] [place] [address] [place] [address] [place] [address] [phone] Social History Tobacco Use Types Packs/Day Years Used Date Never Assessed Sex Assigned at Date Recorded Not on file documented as of this encounter Plan of Treatment Not on filedocumented as of this encounter Procedures Procedure Name Priority Date/Time Associated Diagnosis Comme nts BASIC METABOLIC Routine 11/18/2014 7:00 EDT Resul ts for this PANEL ([facility] procedure are i n the results section. documented in this encounter Results (ABNORMAL) BASIC METABOLIC PANEL ([facility]) (11/18/2014 7:00 EDT) Bun, External 4 (L) 7 - 18 mg/dL [facility] Calcium, External 8.5 8.5 - 10.1 [facility] mg/dL [facility] Chloride, External 104 98 - 107 [facility] mEq/L [facility] CO2, External 28 21 - 32 mEq/L [facility] Creatinine, 0.8 0.5 - 1.4 [facility] External mg/dL [facility] GFR, Robert/Est., >60 [facility] External Comment: [facility] Chronic renal impairment is defined as GFR <60 Multiply result by 1.210 for patients . Glucose, Serum, 104 (H) 70 - 100 [facility] External mg/dL [facility] Potassium, 4.7 3.5 - 5.0 [facility] External mEq/L [facility] Sodium, External 140 135 - 145 [facility] mEq/L [facility] Specimen Performing Organization Address City/State/ZIP Code Phon e Number [facility] [address] [place] [address] [facility] documented in this encounter Visit Diagnoses Not on filedocumented in this encounter Care Teams Production Control Analyst Relationship Specialty Start Date End Date Anaya Burch MD PCP - General 04/01/09 [address] [place] [phone] documented as of this encounter
--- OUTSIDE RECORDS SUMMARY | 2022-02-21 10:28 | XMS_ITS | Encounter Summary ---
:1940 Author Organization [facility] Address [address] [place] [address] Care Team Providers Name Role Phone Anaya Burch MD Primary Care Provider Encounter Details Date Type Department Care Team Description 06/25/2020 Results Only [facility] Hien Vázquez MD [address] [address] [address] [place] [address] (Wo rk) Social History Tobacco Use Types Packs/Day Years Used Date Former Smoker 0.5 20 Alcohol Use Standard Drinks/Week Comments No 0 (1 standard drink = 0.6 oz pure alcoho l) Sex Assigned at Date Recorded Not on file documented as of this encounter Plan of Treatment Not on filedocumented as of this encounter Procedures Procedure Name Priority Date/Time Associated Diagnosis Comme nts SARS-COV2,RNA Routine 06/25/2020 11:00 Results fo r this DETECTION EST procedure are i n the results section. documented in this encounter Results SARS-COV2,RNA DETECTION (06/25/2020 11:00 EST) Method Summary SEE BELOW () [facility] Comment: [facility] PKELM- This test uses the [employer] New Coronavirus Nucleic Acid Detection Kit ([employer] and is performed on the abcdexperts instrument and Applied Netformx 7500 Fast Real-Time PCR System. It has rece ived Emergency Use Authorization (EUA) by the U.S. Food and Drug Administration, and is modified from the outside sales representative' s instructions with a bridging study. Performance characteristics were verified by [facility] in a robles er consistent with CLIA requirements. Fact sheets for this Emergency Use Authorization (EUA) can be found at the following links: https://www.fda.gov/media/016139/download for Health[facility] re Providers https://www.fda.gov/media/823729/download for Patients Test Performed by: [facility] [address] [place] [address] Backroom Associate: Singh Garcia M.D. Ph.D.; CLIA# [id number] SARS-CoV2 RNA Undetected Undetected [facility] Comment: [facility] SARS-CoV-2 RNA absent. This result does not rule out COVID-19 in the patient, as the sensitivity of the nuvia t depends on the timing of the specimen collection and t he quality of the specimen. Result should be correlated w ith patient's history and clinical presentation. SARS-CoV2 Nasopharynx () [facility] Specimen Source - [facility] Specimen Performing Organization Address City/State/ZIP Code Phon e Number [facility] [address] [place] [address] documented in this encounter Visit Diagnoses Not on filedocumented in this encounter Care Teams Radiotelegraph Operator Relationship Specialty Start Date End Date Anaya Burch MD PCP - General 04/01/[address] [place] [phone] documented as of this encounter
--- OUTSIDE RECORDS SUMMARY | 2022-02-21 10:28 | XMS_ITS | Encounter Summary ---
:1940 [place] [address] Care Team Providers Name Role Phone Anaya Burch MD Primary Care Provider Reason for Visit Reason Comments Obstructive Sleep Apnea Encounter Details Date Type Department Care Team Description 09/26/2011 Procedure visit Sleep Medicine Janett Rodriguez MD Obstructive sleep [facility] gardener florist la (adult) Dorcas MEDEL (pediatric) ([place] [address] SLEEP DISORDERS Dx) [phone] [place] [address] Social History Tobacco Use Types Packs/Day Years Used Date Former Smoker Sex Assigned at Date Recorded Not on file documented as of this encounter Last Filed Vital Signs Vital Sign Reading Time Taken Comments Blood Pressure 128/78 09/26/2011 8:00 PM EST Pulse 78 09/26/2011 8:00 PM EST Temperature - - Respiratory Rate - - Oxygen Saturation - - Inhaled Oxygen Concentration - - Weight 80.7 kg (178 lb) 09/26/2011 8:00 PM EST Height 170.2 cm (5' 7) 09/26/2011 8:00 PM EST Body Mass Index 27.88 09/26/2011 8:00 PM EST documented in this encounter Progress Notes Janett Rodriguez MD - 09/29/2011 4:16 PM EST REPORT OF DIAGNOTIC POLYSOMNOGRAM History Of Present Illness: Curtis Vasquez is a 71 y.o. male who presents for a polysomnogram. Polysomnography: The patient's sleep [facility] Sleep was monitored in accordance with recommended AASM guidelines. The recording also included oral/nasal airflow, chest and abdominal respiratory effort, nasal pressure, single channel EKG, intercostal EMG, bilateral tibialis EMG, and oxygen saturation (by pulse oximeter). Comment: - Sleep/EEG: Sleep efficiency: mildly redcued Sleep architecture: elevated N1, otherwise normal REM observed: yes Supine sleep observed: yes - Respiratory: Snoring: moderate to loud Obstructive respiratory events observed: yes AHI: 45 Baseline SaO2: 94% Minimum SaO2: 85% - EKG: Normal sinus rhythm with occasional premature ventricular contractions. - EMG: Unremarkable. Assessment: .Curtis Vasquez is a 71 y.o. male whose polysomnogram reveals obstructive sleep apnea, overall in the severe range. There were some awakenings after sleep onset although sleep architecturewas otherwise normal. No motor disorder identified. Study results reviewed with patient by phone. Hehad a number of questions regarding the diagnosis of obstructive sleep apnea, as well as management options. He had questions about dental procedures/oral appliances and is not sure that he would pursue CPAP. We discussed consideration of a few month trial of CPAP before making a final decision. He isgoing to think about CPAP, as well as look into an oral appliance. We discussed that the oral applian ce is generally less effective than CPAP, particularly for more severe HERMILO. ICSD diagnosis (code) 327.23 Provisional: Final: Obstructive sleep apnea. Recommendations: 1. CPAP trial recommended- patient will consider 2. Patient going to look into custom fit oral appliance. Advised to schedule follow study if he doesobtain oral appliance. 3. Patient will contact me if he would like to pursue CPAP. Patient Name Curtis Vasquez Project: PSG Sex: Male Study Date: 09/26/2011 Date of : 1940 Subject Code: [id number] Age: 71 [facility] #: [id number] Height: 5'7 Referring Physician Anaya Burch M.D. Weight: 178.0 lbs. Sleep Specialist: Janett Rodriguez M.D. B.M.I: 27.9 PARRISH/Mellissa Sleep Architecture Start Time ?? Lights Off: 10:43:38 End Time ?? Lights On: 06:11:08 Total Recording Time (TRT): 447.5 min. Total Sleep Period (TSP): 437.7 min. Total Sleep Time (TST): 369.5 min. Sleep Efficiency: 82.6 % Sleep Onset: 9.8 min. Total Stage Shifts: 124 Transitions to Stage 1: 54 Total Awakenings: 41 REM Periods: 2 REM Latency: 237.0 min. REM Latency (minus Wake time): 189.5 min. Stage Results Time (min.) % TST Latency (min.) Wake (after sleep onset): 68.2 - - Stage 1: 90.5 24.5 9.8 Stage 2: 230.0 62.2 2.5 Stage 3: 0.0 0.0 n.a Stage 4: 2.0 0.5 151.5 REM: 47.0 12.7 237.0 Spontaneous Arousals* Total NREM REM Count: 193 173 20 Index (events/hr): 31.3 32.2 25.5 * (EEG Arousal activity not associated with Respiratory or PLM events). Respiratory Effort-Related Arousals (RERAs) Total NREM REM Supine Non-Supine Count: 0 0 0 0 0 Index (events/hr): 0.0 0.0 0.0 0.0 0.0 Apneas & Hypopneas Central Obstructive Mixed Total Total Apnea Apnea Apnea Apneas Hypopneas Count: 1 30 0 31 244 Index (events/hr.): 0.2 4.9 0.0 5.0 39.6 Mean Duration (sec.): 0.4 15.6 N/A 15.1 17.6 Longest Event (sec.): 0.4 29.5 N/A 29.5 35.2 REM Count: 0 2 0 2 45 NREM Count: 1 28 0 29 199 REM Index: 0.0 2.6 0.0 2.6 57.4 NREM Index: 0.2 5.2 0.0 5.4 37.0 Apneas & Hypopneas (by Body-Position) Total Supine Non-Supine Count: 275 104 171 Index (events/hr): 44.7 88.5 34.3 Apneas & Hypopneas* Central Obstructive Mixed Total Total Apnea Apnea Apnea Apneas Hypopneas Count: 1 30 0 31 46 Index (events/hr.): 0.2 4.9 0.0 5.0 7.5 Mean Duration (sec.): 0.4 15.6 N/A 15.1 21.0 Longest Event (sec.): 0.4 29.5 N/A 29.5 35.2 REM Count: 0 2 0 2 12 NREM Count: 1 28 0 29 34 REM Index: 0.0 2.6 0.0 2.6 15.3 NREM Index: 0.2 5.2 0.0 5.4 6.3 Apneas & Hypopneas* (by Body-Position) Total Supine Non-Supine Count: 77 48 29 Index (events/hr): 12.5 40.8 5.8 * Results include only hypopneas with desaturations ? 4%. Respiratory Arousals* Total NREM REM Count: 116 92 24 Index (events/hr): 18.8 17.1 30.6 * Respiratory Arousals include Apnea arousals, Hypopnea arousals and RERAs. Periodic Limb Movements Total PLMs PLMs w/ Arousals (by Sleep Stages) Count Index Count Index Total Sleep: 81 13.2 5 0.8 Stage 1: 8 5.3 3 2.0 Stage 2: 73 19.0 2 0.5 Stage 3: 0 0.0 0 0.0 Stage 4: 0 0.0 0 0.0 REM: 0 0.0 0 0.0 NREM: 81 15.1 5 0.9 Wake (after Lights Off): 2 1.5 0 0.0 Oxygen Saturation Wake NREM REM TST Mean SaO2%: 93.9 94.0 94.5 94.0 Min. SaO2%: 86.0 85.0 88.0 85.0 Max. SaO2%: 98.0 98.0 98.0 98.0 % Time of SaO2 in range 90 - 100%: 98.4 98.7 98.1 98.7 80 - 90%: 1.6 1.3 1.9 1.3 70 - 80%: 0.0 0.0 0.0 0.0 60 - 70%: 0.0 0.0 0.0 0.0 50 - 60%: 0.0 0.0 0.0 0.0 ? 50%: 0.0 0.0 0.0 0.0 % Artifact / Bad Data: 0.0 0.0 0.0 0.0 Total duration with SaO2 < 89%: 1.1 min. Total duration with SaO2 < 88%: 0.4 min. A. Titration Analysis Chart (Duration & Respiratory) Pressure TIME RESPIRATORY Level Total REM NREM Supine Non-Supine Central Obs. Mixed Hypop- Total Supine Non-Supine (cm. H2O) (min.) (min.) (min.) (min.) (min.) Apnea Apnea Apnea domi A + H AHI AHI B. Titration Analysis Chart (Oxygen Saturation) Pressure OXIMETRY ?? Total Time Level Mean Min. Max. (cm. H2O) SaO2% SaO2% SaO2% documented in this encounter Plan of Treatment Not on filedocumented as of this encounter Visit Diagnoses Diagnosis Obstructive sleep apnea (adult) (pediatr ic) - Primary documented in this encounter Care Teams Spring Winder Relationship Specialty Start Date End Date Anaya Burch MD PCP - General 07/06/10 [address] [place] [phone] documented as of this encounter
--- OUTSIDE RECORDS SUMMARY | 2022-02-21 10:28 | XMS_ITS | Encounter Summary ---
:1940 Author Organization [facility] [place] [address] Care Team Providers Name Role Phone Anaya Burch MD Primary Care Provider Reason for Visit Reason Comments Epiretinal Membrane 5-month f/u on ERM-OD CBC Encounter Details Date Type Department Care Team Description 05/11/2016 Office Visit Ophthalmology at [facility] C Shon Brooks ERM OD (epiretinal membrane, right eye) (Primary Dx); [facility] MD Yogi ERM OS (epiretinal membrane, left eye) [place] [address] [address] [phone] OPHTHALMOLOGY DE PT. 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 I would recommend sedation with a retrobulbar block with general anesthesia as an option too. Risks and benefits carefully defined Consent secured Plan surgery in about 4-5 weeks from now Call if any additional questions or concerns. documented in this encounter Plan of Treatment Not on filedocumented as of this encounter Procedures Procedure Name Priority Date/Time Associated Diagnosis Comme nts VITRECTOMY, W/ Routine 05/11/2016 2:04 PM ERM OD (epiretinal MEMBRANE STRIPPING EDT membrane, rig ht eye) ERM OS (epiretinal membrane, left eye) OCT RETINA - OS - Routine 05/11/2016 1:57 PM ERM OS (epiretina l Results for this LEFT EYE EDT membrane, left eye) procedur e are in the results section. OCT RETINA - OD - Routine 05/11/2016 1:56 PM ERM OD (epiretina l Results for this RIGHT EYE EDT membrane, right eye) procedu re are in the results section. documented in this encounter Results OCT [id number] EYE (05/11/2016 1:57 PM EDT) Anatomical Region Laterality Modality Other Specimen (Source) Anatomical Location Collection Method / Collectio n Time Received Time / Laterality Volume Narrative 05/11/2016 1:57 PM EDT Quality was good. Progression has been stable. Findings include epiretinal membrane. Temporal progression was stabl e. Superior progression was stable. Nasal progression was stable. In ferior progression was stable. Shon Brooks MD OPHTHALMOLOGY SERVICES ORDER RAISA OCT [facility] EYE (05/11/2016 1:56 PM EDT) Anatomical Region Laterality Modality Other Specimen (Source) Anatomical Location Collection Method / Collectio n Time Received Time / Laterality Volume Narrative 05/11/2016 1:56 PM EDT Quality was good. Progression has been stable. Findings include epiretinal membrane. Temporal progression was stabl e. Superior progression was stable. Nasal progression was stable. In ferior progression was stable. Shon Brooks MD OPHTHALMOLOGY SERVICES ORDER RAISA documented in this encounter Visit Diagnoses Diagnosis ERM OD (epiretinal membrane, right eye) - Primary Macular puckering of retina ERM OS (epiretinal membrane, left eye) Macular puckering of retina documented in this encounter Care Teams Combat Systems Officer Relationship Specialty Start Date End Date Anaya Burch MD PCP - General 07/06/10 [address] [place] [phone] documented as of this encounter
--- OUTSIDE RECORDS SUMMARY | 2022-02-21 10:29 | XMS_ITS ---
:1940 Author Care Team Providers Name Role Phone GAB FOUNTAIN MD OTHER [phone] Allergies Code Code System Name Reaction Severity Status Onset Sulfa (Sulfonamide Nausea ? Active ? Antibiotics) 84202 RxNorm Tetracycline Nausea ? Active ? Medications Name Status Start Date Stop Date ? ? Aleve 220 mg capsule Active ? Not availab le 220 bid amoxicillin 500 mg capsule Unknown ? Not a vailable clonazepam 0.25 mg disintegrating tablet Active ? Not available Take 0.5 tablets every day by oral route. fluconazole 150 mg tablet Unknown ? Not av ailable mupirocin 2 % topical ointment Unknown ? N ot available trazodone 50 mg tablet Active ? Not avail able 50mg hs Notes: MVI, CoQ10, Ginko billoba, Vit C, Glucosamine Problems Name Status Onset Date Source ? Tobacco User Active ? History Electrocardiogram Abnormal Active ? Histo ry History of Clinical Finding in Subject Active ? History Procedures None recorded. Results Lab Results None recorded. Past Encounters None recorded. Social History Tobacco Smoking Status Former Smoker Notes: quit 20 yrs Vaccine List None recorded. Plan of Care Reminders Provider Appointments None recorded. ? ? Lab None recorded. ? ? Referral None recorded. ? ? Procedures None recorded. ? ? Surgeries None recorded. ? ? Imaging None recorded. ? ? Vitals Height Weight BMI Blood Pressure 5 ft 7.5 in 180 lbs 27.8 kg/m2 138/70 mm[Hg]
--- OUTSIDE RECORDS SUMMARY | 2022-02-21 10:29 | XMS_ITS | Encounter Summary ---
:1940 Author Organization [facility] Address [address] [place] [address] Care Team Providers Name Role Phone Unavailable Primary Care Provider Unavailable Encounter Details Date Type Department Care Team Description 08/10/2001 Hospital Encounter [facility] - Ivon Desir MD Other [address] [place] [address] [place] [address] Social History Tobacco Use Types Packs/Day Years Used Date Never Assessed Sex Assigned at Date Recorded Not on file documented as of this encounter Discharge Disposition Disposition Code Departure Means Destination Home or Self Care documented in this encounter Plan of Treatment Not on filedocumented as of this encounter Procedures Procedure Name Priority Date/Time Associated Diagnosis Comme nts CERVICAL SPINE 1 Routine 08/10/2001 9:35 EST Resu lts for this VIEW procedure are i n the results section. CERVICAL SPINE 1 Routine 08/10/2001 8:40 EST Resu lts for this VIEW procedure are i n the results section. documented in this encounter Results CERVICAL SPINE (08/10/2001 9:35 EST) Anatomical Region Laterality Modality Other Specimen Narrative [facility] - 07/03/2009 4: 15 EST ANT CERV FUSION R/O CHECK HARDWARE 0840 HOURS. 0935 HOURS. FINDINGS: One film at 0840 hours shows 2 needles a nteriorly. The upper needle has its tip overlying the anterior C5-C6 disc space. The lower needle is obscured by overlapping shoulders, bu t appears to be pointing to roughly the C6-C7 disc space. Mild anter olisthesis of C4 on C5 is noted. FILM AT 0935 HOURS: Shoulders overlie the cervical spine bel ow the C5 level. There is noted to be a plate at C6 extending infe riorly. There are screws noted in the C6 vertebral body. Shoulder s obscure the detail at C6-C7 and even the inferior-most aspect of the plate is not seen with certainty. There is mild anterolisthesis of C4 on C5, again noted. /tns Procedure Note Ulises Chavez MD - 07/03/2009 ANT CERV FUSION R/O CHECK HARDWARE 0840 HOURS. 0935 HOURS. FINDINGS: One film at 0840 hours shows 2 needles a nteriorly. The upper needle has its tip overlying the anterior C5-C6 disc space. The lower needle is obscured by overlapping shoulders, bu t appears to be pointing to roughly the C6-C7 disc space. Mild anter olisthesis of C4 on C5 is noted. FILM AT 0935 HOURS: Shoulders overlie the cervical spine bel ow the C5 level. There is noted to be a plate at C6 extending infe riorly. There are screws noted in the C6 vertebral body. Shoulder s obscure the detail at C6-C7 and even the inferior-most aspect of the plate is not seen with certainty. There is mild anterolisthesis of C4 on C5, again noted. /tns Performing Organization Address City/[facility]/ZIP Code Phon e Number [facility] [address] [address] [facility] [address] [place] [phone] CERVICAL SPINE (08/10/2001 8:40 EST) Anatomical Region Laterality Modality Other Specimen Narrative [facility] - 07/03/2009 4: 14 EST ANT c6-7 DISC [facility] - PLATING CHECK NEEDLE LEVEL FOR R/O Procedure Note Ulises Chavez MD - 07/03/2009 ANT c6-7 DISC [facility] - PLATING CHECK NEEDLE LEVEL FOR R/O Performing Organization Address City/[facility]/ZIP Code Phon e Number [facility] [address] [facility], [place] [address] [facility] [address] [place], [place] [address] documented in this encounter Visit Diagnoses Not on filedocumented in this encounter
--- OUTSIDE RECORDS SUMMARY | 2022-02-21 10:29 | XMS_ITS | Encounter Summary ---
:1940 Author Organization [facility] Address [address] [place] [address] Care Team Providers Name Role Phone Anaya Burch MD Primary Care Provider Encounter Details Date Type Department Care Team Description 04/19/2011 Results Only [facility] Anaya Burch, Laboratory Services - Chanell SERRANO [address] [phone] (Wo rk) Social History Tobacco Use Types Packs/Day Years Used Date Never Assessed Sex Assigned at Date Recorded Not on file documented as of this encounter Plan of Treatment Not on filedocumented as of this encounter Procedures Procedure Name Priority Date/Time Associated Comments Diagnosis HEPATITIS C AB W Routine 04/19/2011 14:36 Results for this REFLEX TO HCV RNA BY EDT procedu re are in PCR the results section. HEPATITIS B SURFACE Routine 04/19/2011 14:36 Resu lts for this ANTIBODY EDT procedure are i n the results section. HIV 1/2 ANTIGEN AND Routine 04/19/2011 14:36 Resu lts for this ANTIBODY, 4TH EDT procedure are in GENERATION the results section. documented in this encounter Results HEPATITIS B SURFACE ANTIBODY (04/19/2011 14:36 EDT) Hepatitis B Negative Reference [facility] Surface Ab Range: Negative LAB Interpretation depends on clinical setting. Specimen Blood specimen (specimen) Performing Organization Address City/State/ZIP Code Phon e Number [facility] [address] [place] [address] SERVICES [facility] [address] [place] [address] HEPATITIS C ANTIBODY (04/19/2011 14:36 EDT) Pathologist Sig nature Hepatitis C Ab Negative Reference [facility] Range: Negative Specimen Blood specimen (specimen) Performing Organization Address City/[facility] Phon e Number [facility] [address] [place] [address] SERVICES [facility] [address] [place] [address] HIV ANTIBODY (04/19/2011 14:36 EDT) HIV 1/2 Antibody Negative Reference [facility] Range: Negative Specimen Blood specimen (specimen) Performing Organization Address [facility] Phon e Number [facility] [address] [place] [address] SERVICES [facility] [address] [place] [address] documented in this encounter Visit Diagnoses Not on filedocumented in this encounter Care Teams Ambulatory Care Nurse Relationship Specialty Start Date End Date Anaya Burch MD PCP - General 04/01/[address] [place] [phone] documented as of this encounter
--- OUTSIDE RECORDS SUMMARY | 2022-02-21 10:29 | XMS_ITS | Encounter Summary ---
:1940 Author Organization [facility] Address [address] [place] [address] Care Team Providers Name Role Phone Anaya Burch MD Primary Care Provider Encounter Details Date Type Department Care Team Description 07/23/2007 Results Only [facility] - Anaya Hawkins, conversion MD [address] [facility] [address] [place] [address] [place], [place] [phone] (Wo rk) Social History Tobacco Use Types Packs/Day Years Used Date Never Assessed Sex Assigned at Date Recorded Not on file documented as of this encounter Plan of Treatment Not on filedocumented as of this encounter Procedures Procedure Name Priority Date/Time Associated Diagnosis Comme [facility] SURGICAL PATHOLOGY Routine 07/23/2007 0:00 EST Re sults for this procedure are i n the results section. documented in this encounter Results SURGICAL PATHOLOGY (07/23/2007 0:00 EST) Pathologist [facility] Pathology SURGICAL PATHOLOGY REPORT [facility] Report: Reports generated via electronic interface contain vielka ginal data; LAB however they are lacking the format of the original re port. Caution should be taken when reading/interpreting unfo rmatted reports. Name: ? MAGDALENA BANEGAS ? Accession #: ? [id number] ? : ? 1940 (Age: 66) ??M ? Collect Date: ? 07/23/2007 ? Location: ? [facility] ? Receive Date: ? 007 ? Provider: ANAYA BURCH MD Copy to: ? Final Pathologic Diagnosis: ? Skin of flank, right, shave biopsy: - Seborrheic keratosis, irritated. ?? Microscopic Description: ? Orthohyperkeratosis a nd focal parakeratosis thicken the stratum corneum. There is formation of horn pseudocysts. ??The epidermi s is hyperplastic with acanthosis and papillomatosis. ??The keratinocyt es have a basaloid appearance with squamous eddies in many areas. ??Wi thin the dermis, there is a moderately dense lymphohistiocytic infiltrate. (Dr. De Leon)/[facility] [[email or web address]] Document reviewed and electronically signed by: Joanna De Leon MD Report ??Date: 07/25/2007 16:49 By the signature above, the attending physician certif ies that he/she has personally conducted a gross and/or microscopic examin ation of the described specimens and rendered or confirmed the above diagnosi s. Specimen(s) Received: ? R flank Clinical History: ? Ab(n) lesion (flaking itchy); clinical diagnosi s code: 709.9 Gross Description: ? Received in formalin labelled Pedro is a 0.2 x 0.1 x 0.1 cm shave biopsy of a brown-guzman papule. ??The specimen is submitted in one cassette. ??([place]/[facility] End of Report Specimen Performing Organization Address City/State/ZIP Code Phon e Number [facility] [address] [place] [address] SERVICES [facility] [address] [place] [address] documented in this encounter Visit Diagnoses Not on filedocumented in this encounter Care Teams Surgical Instrument Technician Relationship Specialty Start Date End Date Anaya Burch MD PCP - General 04/01/09 [address] [place] [phone] documented as of this encounter
--- OUTSIDE RECORDS SUMMARY | 2022-02-21 10:29 | XMS_ITS | Encounter Summary ---
:1940 Author Organization [facility] Address [address] [place] [address] Care Team Providers Name Role Phone Anaya Burch MD Primary Care Provider Encounter Details Date Type Department Care Team Description 11/13/2014 Results Only [facility] Best Castaneda MD Laboratory Services - [address] [place] [address] [place] [address] [place] [address] [phone] Social History Tobacco Use Types Packs/Day Years Used Date Never Assessed Sex Assigned at Date Recorded Not on file documented as of this encounter Plan of Treatment Not on filedocumented as of this encounter Procedures Procedure Name Priority Date/Time Associated Comments Diagnosis COMPREHENSIVE Routine 11/13/2014 14:05 Results fo r this METABOLIC PANEL ([facility]) EDT proce dure are in the results section. documented in this encounter Results (ABNORMAL) COMPREHENSIVE METABOLIC PANEL ([facility]) (11/13/2014 14:05 EDT) Albumin, External 3.4 3.4 - 5.0 [facility] g/dL [facility] Total Alkaline 204 (H) 10 - 117 U/L [facility] Phosphatase, [facility] External Bilirubin, Total, 2.1 (H) 0.0 - 1.0 [facility] External mg/dL [facility] Bun, External 14 7 - 18 mg/dL [facility] Calcium, External 8.3 (L) 8.5 - 10.1 [facility] mg/dL [facility] Chloride, External 104 98 - 107 [facility] mEq/L [facility] CO2, External 27 21 - 32 mEq/L [facility] Creatinine, 0.8 0.5 - 1.4 [facility] External mg/dL [facility] GFR, Robert/Est., >60 [facility] External Comment: [facility] Chronic renal impairment is defined as GFR <60 Multiply result by 1.210 for patients . Glucose, Serum, 127 (H) 70 - 100 [facility] External mg/dL [facility] Potassium, 3.6 3.5 - 5.0 [facility] External mEq/L [facility] Sodium, External 137 135 - 145 [facility] mEq/L [facility] AST, External 181 (H) 10 - 37 U/L [facility] ALT, External 399 (H) 12 - 78 U/L [facility] Specimen Performing Organization Address City/State/ZIP Code Phon e Number [facility] [address] [place] [address] [facility] documented in this encounter Visit Diagnoses Not on filedocumented in this encounter Care Teams Glass Etcher Helper Relationship Specialty Start Date End Date Anaya Burch MD PCP - General 04/01/09 [address] [place] [phone] documented as of this encounter
--- OUTSIDE RECORDS SUMMARY | 2022-02-21 10:29 | XMS_ITS | Encounter Summary ---
:1940 Author Organization [facility] Address [address] [place] [address] Care Team Providers Name Role Phone Unavailable Primary Care Provider Unavailable Encounter Details Date Type Department Care Team Description 10/20/2008 Before PRISM Converted [facility] - Wiliam Burch blessing Visit (Maple) Maple conversion MD Melody [address] [address] [place], [place] [phone] Social History Tobacco Use Types Packs/Day Years Used Date Never Assessed Sex Assigned at Date Recorded Not on file documented as of this encounter Plan of Treatment Not on filedocumented as of this encounter Procedures Procedure Name Priority Date/Time Associated Diagnosis Comme nts PSA SCREEN Routine 10/20/2008 16:34 EDT Results for this procedure are i n the results section . documented in this encounter Results PSA SCREEN (10/20/2008 16:34 EDT) PSA 0.7 0 - 4.5 ng/ml [facility] Comment: LAB Serum PSA concentration should not be interpreted as absolute evidence for the presence or absence of malignant disease. Assayed utilizing [employer] chemiluminescent technology. Values obtained by using different assay methods cannot be used interchangeably. PREVIOUS PSA RESULT ON 09/11/07 WAS 0.8 Specimen Performing Organization Address City/State/ZIP Code Phon e Number [facility] [address] [place] [address] SERVICES [facility] [address] [place] [address] documented in this encounter Visit Diagnoses Not on filedocumented in this encounter
--- OUTSIDE RECORDS SUMMARY | 2022-02-21 10:29 | XMS_ITS | Encounter Summary ---
:[address] [facility] Address [address] [place] [address] Care Team Providers Name Role Phone Anaya Burch MD Primary Care Provider Encounter Details Date Type Department Care Team Description 04/19/2011 Results Only [facility] Anaya Burch, Laboratory Services - Chanell SERRANO [address] [address] [phone] (Wo rk) Social History Tobacco Use Types Packs/Day Years Used Date Never Assessed Sex Assigned at Date Recorded Not on file documented as of this encounter Plan of Treatment Not on filedocumented as of this encounter Procedures Procedure Name Priority Date/Time Associated Diagnosis Comme nts HEPATITIS B SURFACE Routine 04/19/2011 14:36 Resu lts for this ANTIGEN EDT procedure are i n the results section. documented in this encounter Results HEPATITIS B SURFACE ANTIGEN (04/19/2011 14:36 EDT) Hepatitis B Surface Negative Reference [facility] Ag Range: Negative Specimen Blood specimen (specimen) Performing Organization Address City/State/ZIP Code Phon e Number [facility] [address] [place] [address] SERVICES [facility] [address] [place] [address] documented in this encounter Visit Diagnoses Not on filedocumented in this encounter Care Teams Churn Tender Relationship Specialty Start Date End Date Anaya Burch MD PCP - General 04/01/[address] [place] [phone] documented as of this encounter
--- OUTSIDE RECORDS SUMMARY | 2022-02-21 10:29 | XMS_ITS | Encounter Summary ---
:1940 Author Organization [facility] Address [address] [place] [address] Care Team Providers Name Role Phone Anaya Burch MD Primary Care Provider Encounter Details Date Type Department Care Team Description 11/13/2014 Historical Results [facility] - Bev Castaneda MD Only [facility] [address] Results [place], [place] [address] [place] [address] [place] [address] [phone] Social History Tobacco Use Types Packs/Day Years Used Date Never Assessed Sex Assigned at Date Recorded Not on file documented as of this encounter Plan of Treatment Not on filedocumented as of this encounter Procedures Procedure Name Priority Date/Time Associated Comments Diagnosis MR EPI Keen 11/13/2014 17:06 Results for this DOCTOR SUPERVISION EDT procedure are in the results section. US ABDOMEN LIMITED 11/13/2014 16:52 Resul ts for this EDT procedure are i n the results section. documented in this encounter Results MR EPI Keen DOCTOR SUPERVISION (11/13/2014 17:06 EDT) Specimen Narrative [facility] - 11/14/2014 8:05 EDT ? EXAM: MAGNETIC RESONANCE IMAGING/MRCP 3D ??EX. D/ (1706) ? CLINICAL INFORMATION: ? ACUTE PANCREATITS WITH ABNL LFT ? Patient Name: Curtis Vasquez ? Date of : 1940 ? Exam: MR MRCP ? Date of Exam: 11/13/2014 ? Referring Physician: DAYRON CLANCY ? Clinical History: acute pancreati tis with abnl LFT ? FINAL REPORT ? EXAM: ? MR Abdomen Without and With Intra venous Contrast, MRCP Protocol. ? CLINICAL HISTORY: ? The patient is 74 years-old, male ; Acute pancreatitis with abnl lft ? TECHNIQUE: ? Multiplanar magnetic resonance im ages of the abdomen without and with ? intravenous contrast using MRCP p rotocol. ? CONTRAST: ? 16 mL of multihance administered intravenously. ? COMPARISON: ? CT ABDOMEN PELVIS 11/12/2014 8:46:3 2 PM ? FINDINGS: ? Multiple gallstones. No significa nt gallbladder wall thickening or ? pericholecystic edema. No intrahe patic or extrahepatic biliary ? dilatation. No filling defects salazar spicious for stones or masses are ? seen in the biliary tree. Peripan creatic edema/inflammation, minimal ? fluid is seen extending into the left paracolic gutter. No pseudocyst ? or necrosis. No pancreatic ductal dilatation. ? No focal liver lesions. Normal sp min. Tiny right renal cyst, no ? hydronephrosis of either kidney. There is no abdominal aortic ? aneurysm. Patent splenic and port al veins. ? IMPRESSION: ? Cholelithiasis, pancreatitis. No choledocholithiasis. ? PAGE 1 ? [facility] Report ? (CONTINUED) ? Dictated, Authenticated, and Elec tronically Signed by: Salomón Quintero on ? 11/13/2014 at 5:25:23PM ?Reported B y: Salomón Quintero MD ? CC: ? Transcribed Date/Time: 11/14/2014 (0805) ? Complaint Manager: ALISON ? Printed Date/Time: 01/15/2019 (09 06) ? PAGE 2 ? [facility] Report ? Procedure Note Salomón Quintero, RN - 06/18/2019 EXAM: MAGNETIC RESONANCE IMAGING/MRCP 3 D EX. D/ (1706) CLINICAL INFORMATION: ACUTE PANCREATITS WITH ABNL LFT Patient Name: Curtis Vasquez Date of : 1940 Exam: MR MRCP Date of Exam: 11/13/2014 Referring Physician: DAYRON CLANCY Clinical History: acute pancreatitis wi th abnl LFT FINAL REPORT EXAM: MR Abdomen Without and With Intravenous Contrast, MRCP Protocol. CLINICAL HISTORY: The patient is 74 years-old, male; Acut e pancreatitis with abnl lft TECHNIQUE: Multiplanar magnetic resonance images o f the abdomen without and with intravenous contrast using MRCP protoco l. CONTRAST: 16 mL of multihance administered intrav enously. COMPARISON: CT ABDOMEN PELVIS 11/12/2014 8:46:32 PM FINDINGS: Multiple gallstones. No significant gal lbladder wall thickening or pericholecystic edema. No intrahepatic or extrahepatic biliary dilatation. No filling defects suspicio us for stones or masses are seen in the biliary tree. Peripancreati c edema/inflammation, minimal fluid is seen extending into the left p aracolic gutter. No pseudocyst or necrosis. No pancreatic ductal dilat ation. No focal liver lesions. Normal spleen. Tiny right renal cyst, no hydronephrosis of either kidney. There is no abdominal aortic aneurysm. Patent splenic and portal vei ns. IMPRESSION: Cholelithiasis, pancreatitis. No choled ocholithiasis. PAGE 1 Signed Report (CONTINUED) Dictated, Authenticated, and Electronic ally Signed by: Salomón Quintero on 11/13/2014 at 5:25:23PM Reported By: Salomón Quintero MD CC: Transcribed Date/Time: 11/14/2014 (0805 ) Complaint Manager: ALISON Printed Date/Time: 01/15/2019 (0912) PAGE 2 Signed Report Performing Organization Address City/State/ZIP Code Phon e Number [facility] US ABDOMEN LIMITED (11/13/2014 16:52 EDT) Specimen Narrative [facility] - 11/13/2014 16:59 EDT ? EXAM: ULTRASOUND/RIGHT UPPER QUADRANT ? EX. D/ (2038) ? CLINICAL INFORMATION: ? RUQ PAIN, TEA COLORED URINE, WHIT E STOOLS ? Indication: Right upper quadrant pain. Dark urine. White stools. ? Comparison: None. ? Technique: Sonographic examinatio n of the right upper quadrant was ? performed. ? Findings: There are small stones within the gallbladder. No ? gallbladder wall thickening or pe richolecystic fluid collection is ? identified. There is mild intrahe patic bile that dilatation. The ? common bile duct measures 5 mm in diameter. No focal hepatic lesion ? is seen. The pancreas is inadequa tely visualized on this examination. ? The IVC is patent. Limited scans of the right kidney are ? unremarkable. ? Impression: ? 1. Cholelithiasis. ? 2. Mild intrahepatic bile that di latation. ? 3. Inadequate evaluation of the p ancreas. ? REPORT SIGNED IN OTHER VENDOR SYSTEM 11/13/2014 ?Reported B y: Noman Harley MD ? CC: ? Transcribed Date/Time: 11/13/2014 (1658) ? Complaint Manager: ? Printed Date/Time: 01/15/2019 (04 19) ? PAGE 1 ? Mariann d Report ? Procedure Note Noman Harley MD - 06/18/2019 EXAM: ULTRASOUND/RIGHT UPPER QUADRANT E X. D/ (2038) CLINICAL INFORMATION: RUQ PAIN, TEA COLORED URINE, WHITE STOO LS Indication: Right upper quadrant pain. Dark urine. White stools. Comparison: None. Technique: Sonographic examination of t he right upper quadrant was performed. Findings: There are small stones within the gallbladder. No gallbladder wall thickening or perichol ecystic fluid collection is identified. There is mild intrahepatic bile that dilatation. The common bile duct measures [address] No focal hepatic lesion is seen. The pancreas is inadequately v isualized on this examination. The IVC is patent. Limited scans of the right kidney are unremarkable. Impression: 1. Cholelithiasis. 2. Mild intrahepatic bile that dilatati on. 3. Inadequate evaluation of the pancrea s. REPORT SIGNED IN OTHER VENDOR SYSTEM 11/13/2014 Reported By: Noman Harley MD CC: Transcribed Date/Time: 11/13/2014 (4923 ) Complaint Manager: Printed Date/Time: 01/15/2019 (2789) PAGE 1 Signed Report Performing Organization Address City/State/ZIP Code Phon e Number [facility] documented in this encounter Visit Diagnoses Not on filedocumented in this encounter Care Teams Tap Out Operator Relationship Specialty Start Date End Date Anaya Burch MD PCP - General 04/01/[address] [place] [phone] documented as of this encounter
--- OUTSIDE RECORDS SUMMARY | 2022-02-21 10:29 | XMS_ITS | Encounter Summary ---
:[address] [facility] Address [address] [place] [address] Care Team Providers Name Role Phone Anaya Burch MD Primary Care Provider Encounter Details Date Type Department Care Team Description 09/11/2007 Results Only [facility] - Anaya Hawkins conversion MD [id number] [place] [address] [phone] (Wo rk) Social History Tobacco Use Types Packs/Day Years Used Date Never Assessed Sex Assigned at Date Recorded Not on file documented as of this encounter Plan of Treatment Not on filedocumented as of this encounter Procedures Procedure Name Priority Date/Time Associated Diagnosis Comme nts PSA SCREEN Routine 09/11/2007 10:00 EST Results for this procedure are i n the results section . documented in this encounter Results PSA SCREEN (09/11/2007 10:00 EST) PSA 0.8 0 - 4.5 ng/ml [facility] Comment: LAB Serum PSA concentration should not be interpreted as absolute evidence for the presence or absence of malignant disease. Assayed utilizing [employer] chemiluminescent technology. Values obtained by using different assay methods cannot be used interchangeably. Specimen Performing Organization Address City/State/ZIP Code Phon e Number [facility] [address] [place] [address] SERVICES [facility] [address] [place] [address] documented in this encounter Visit Diagnoses Not on filedocumented in this encounter Care Teams Career Services Manager Relationship Specialty Start Date End Date Anaya Burch MD PCP - General 04/01/09 [address] [place] [phone] documented as of this encounter
--- OUTSIDE RECORDS SUMMARY | 2022-02-21 10:29 | XMS_ITS | Encounter Summary ---
:1940 Author Organization [facility] Address [address] [place] [address] Care Team Providers Name Role Phone Anaya Burch MD Primary Care Provider Encounter Details Date Type Department Care Team Description 09/27/1999 Hospital Encounter [facility] [address] [address] [place] [address] Social History Tobacco Use Types Packs/Day Years Used Date Former Smoker 0.5 20 Alcohol Use Standard Drinks/Week Comments No 0 (1 standard drink = 0.6 oz pure alcoho l) Sex Assigned at Date Recorded Not on file documented as of this encounter Plan of Treatment Not on filedocumented as of this encounter Procedures Procedure Name Priority Date/Time Associated Diagnosis Comme nts BACTERIAL CULTURE, Routine 09/27/1999 12:12 Resul ts for this BLOOD EST procedure are i n the results section. BACTERIAL CULTURE, Routine 09/27/1999 12:12 Resul ts for this BLOOD EST procedure are i n the results section. SED RATE Routine 09/27/1999 12:11 Results for this EST procedure are i n the results section. COMPLETE BLOOD Routine 09/27/1999 12:11 Results f or this COUNT EST procedure are i n the results section. documented in this encounter Results BACTERIAL CULTURE, BLOOD (09/27/1999 12:12 EST) Pathologist Sig nature Specimen Description Blood [facility] Right Arm Result No growth [facility] Report Status Final [facility] [id number] Specimen Performing Organization Address City/State/ZIP Code Phon e Number [facility] [address] [place] [address] SERVICES [facility] [address] [place] [address] BACTERIAL CULTURE, BLOOD (09/27/1999 12:12 EST) Pathologist Sig nature Specimen Description Blood [facility] Left Arm Result No growth [facility] Report Status Final [facility] [id number] Specimen Performing Organization Address [facility]/ZIP [facility] [place] e Number [facility] [address] [place] [address] SERVICES [facility] [address] [place] [address] SED. RATE:WESTERGREN (09/27/1999 12:11 EST) Pathologist Sig nature Sed. Rate Westergren 2 0 - 20 mm/hr [facility] Specimen Performing Organization Address [facility] Phon e Number [facility] [address] [place] [address] SERVICES [facility] [address] [place] [address] HEMAGRAM (09/27/1999 12:11 EST) Pathologist Sig nature WBC 5.40 4.0 - 10.4 K/cmm [facility] RBC 4.90 4.36 - 5.78 M/cmm [facility] Hemoglobin 15.0 13.8 - 17.3 gm/dl [facility] HCT 44.9 39.5 - 50.2 % [facility] MCV 92 81 - 95 fl [facility] MCH 30.6 27.6 - 33.0 pg [facility] MCHC 33.4 32.8 - 36.4 gm/dl [facility] PLT 263 141 - 320 K/cmm [facility] Specimen Performing Organization Address City/[facility]/ZIP Code Phon e Number [facility] [address] [place] [address] SERVICES [facility] [address] [place] [address] documented in this encounter Visit Diagnoses Not on filedocumented in this encounter Care Teams Residential Designer Relationship Specialty Start Date End Date Anaya Burch MD PCP - General 04/01/[address] [place] [address] [phone] documented as of this encounter
--- OUTSIDE RECORDS SUMMARY | 2022-02-21 10:29 | XMS_ITS | Encounter Summary ---
:1940 Author Organization [facility] Address [address] [place] [address] Care Team Providers Name Role Phone Unavailable Primary Care Provider Unavailable Encounter Details Date Type Department Care Team Description 10/30/2007 Hospital Encounter [facility] fe Marquez MD 111 [facility] [address] [place] [address] [place], [place] [phone] (Wo rk) Social History Tobacco Use Types [...]
--- OUTSIDE RECORDS SUMMARY | 2022-02-21 10:29 | XMS_ITS | Encounter Summary ---
:1940 Author Organization [facility] Address [address] [place] [address] Care Team Providers Name Role Phone Anaya Burch MD Primary Care Provider Encounter Details Date Type Department Care Team Description 04/19/2011 Results Only [facility] Anaya Burch, Laboratory Services - Chanell SERRANO [address] [phone] (Wo rk) Social History Tobacco Use Types Packs/Day Years Used Date Never Assessed Sex Assigned at Date Recorded Not on file documented as of this encounter Plan of Treatment Not on filedocumented as of this encounter Procedures Procedure Name Priority Date/Time Associated Comments Diagnosis CHLAMYDIA/N. Routine 04/19/2011 14:13 Results for this GONORRHOEAE AMPLIFIED EDT proced ure are in RNA, URINE the results section. documented in this encounter Results CHLAMYDIA/GC AMPLIFIED, URINE (04/19/2011 14:13 EDT) Specimen Urine [facility] Description LAB Chlamydia Result No Chlamydia [facility] trachomatis DNA LAB detected by top former mediated amplification. GC Result No Neisseria [facility] gonorrhoeae DNA LAB detected by top former mediated amplification. Specimen Other (qualifier value) Performing Organization Address City/State/ZIP Code Phon e Number [facility] [address] [place] [address] SERVICES [facility] [address] [place] [address] documented in this encounter Visit Diagnoses Not on filedocumented in this encounter Care Teams Cardiovascular Technician Relationship Specialty Start Date End Date Anaya Burch MD PCP - General 04/01/09 [address] [place] [phone] documented as of this encounter
--- OUTSIDE RECORDS SUMMARY | 2022-02-21 10:29 | XMS_ITS | Encounter Summary ---
:1940 Author Organization [facility] Address [address] [place] [address] Care Team Providers Name Role Phone Unavailable Primary Care Provider Unavailable Encounter Details Date Type Department Care Team Description 10/20/2008 Hospital Encounter [facility] - Anaya Burch MD [id number] [place] [phone] (Wo rk) Social History Tobacco Use Types [...]
--- OUTSIDE RECORDS SUMMARY | 2022-02-21 10:29 | XMS_ITS | Encounter Summary ---
:1940 Author Organization [facility] Address [address] [place] [address] Care Team Providers Name Role Phone Unavailable Primary Care Provider Unavailable Encounter Details Date Type Department Care Team Description 07/31/2001 Hospital Encounter [facility] - Ivon Desir MD [address] [place] [address] [place] [address] Social History Tobacco Use Types Packs/Day Years Used Date Never Assessed Sex Assigned at Date Recorded Not on file documented as of this encounter Discharge Disposition Disposition Code Departure Means Destination Auto Discharge documented in this encounter Plan of Treatment Not on filedocumented as of this encounter Procedures Procedure Name Priority Date/Time Associated Comments Diagnosis PLATELET FUNCTION Routine 07/31/2001 14:40 Result s for this ASSAY/ANALYSIS EST procedure are in the results section. COMPLETE BLOOD COUNT Routine 07/31/2001 14:40 Res ults for this EST procedure are i n the results section. ELECTROLYTES Routine 07/31/2001 14:40 Results for this EST procedure are i n the results section. documented in this encounter Results PLATELET FUNCTION ASSAY/ANALYSIS (07/31/2001 14:40 EST) COL/EPI Cartridge 141 94 - 193 secs [facility] Comment: LAB Platelet function results wi th closure times within or below the reference range are consistent with normal platelet function. NOTE: ??PLT Funct Analysis replaces the Bleeding Time Specimen Performing Organization Address City/State/ZIP Code Phon e Number [facility] [address] [place] [address] SERVICES [facility] [address] [place] [address] ELECTROLYTES (07/31/2001 14:40 EST) Pathologist Sig nature Sodium 140 136 - 145 mEq/L [facility] Potassium 4.7 3.5 - 5.0 mEq/L [facility] Chloride 104 96 - 110 mEq/L [facility] CO2 26 24 - 30 mEq/L [facility] Specimen Performing Organization Address City/[facility]/RUST Code Phon e Number [facility] [address] [place] [address] SERVICES [facility] [address] [place] [address] HEMAGRAM (07/31/2001 14:40 EST) Pathologist Sig nature WBC 5.96 4.0 - 10.4 K/cmm [facility] RBC 5.21 4.36 - 5.78 M/cmm [facility] Hemoglobin 16.0 13.8 - 17.3 gm/dl [facility] HCT 47.1 39.5 - 50.2 % [facility] MCV 90 81 - 95 fl [facility] MCH 30.8 27.6 - 33.0 pg [facility] MCHC 34.0 32.8 - 36.4 gm/dl [facility] PLT 305 141 - 320 K/cmm [facility] RDW-CV 12.8 11.8 - 14.1 % [facility] Specimen Performing Organization Address City/[facility]/ZIP Code Phon e Number [facility] [address] [place] [address] SERVICES [facility] [address] [place] [address] documented in this encounter Visit Diagnoses Not on filedocumented in this encounter
--- OUTSIDE RECORDS SUMMARY | 2022-02-21 10:29 | XMS_ITS | Encounter Summary ---
:[address] [facility] Address [address] [place] [address] Care Team Providers Name Role Phone Unavailable Primary Care Provider Unavailable Encounter Details Date Type Department Care Team Description 06/27/2001 Hospital Encounter [facility] MD Fletcher [address] [facility] [place] [address] [place], [place] [phone] (Wo rk) Social History Tobacco Use Types Packs/Day Years Used Date Never Assessed Sex Assigned at Date Recorded Not on file documented as of this encounter Discharge Disposition Disposition Code Departure Means Destination Auto Discharge documented in this encounter Plan of Treatment Not on filedocumented as of this encounter Procedures Procedure Name Priority Date/Time Associated Diagnosis Comme nts MR CERVICAL SPINE Routine 06/27/2001 11:19 Result s for this WO CONTRAST EST procedure are i n the results section. ORBITS FOREIGN BODY Routine 06/27/2001 9:59 EST R esults for this procedure are i n the results section. documented in this encounter Results MR CERVICAL SPINE WO CONTRAST (06/27/2001 11:19 EST) Anatomical Region Laterality Modality Other Specimen Impressions [facility] - 07/03/2009 0: 39 EST IMPRESSION: 1. Mild left neural foraminal narrowing secondary to uncinate spurring at C3-4 and C4-5. 2. Mixed spondylitic changes at C5-6 cau sing mild compression of the thecal sac anteriorly. 3. Moderate to severe mixed spondylitic changes at C6-7 with marked thecal sac compression anteriorly. D 06/27/01 T 06/28/01 /jl Narrative [facility] - 07/03/2009 0: 39 EST BILATERAL NUMBNESS, TINGLING ARMS R/O CERVICAL RADICULOPATHY MRI CERVICAL SPINE W/O CONTRAST 06/27/01 , 1000 hours COMPARISON: none HISTORY: Bilateral numbness; r/o cervical radicul opathy TECHNIQUE: Sagittal T1 and T2 weighted images of th e cervical spine were performed. Axial gradient echo images of the cervical spine were performed. FINDINGS: There is uncinate spurring causing mild foraminal narrowing at C3-4 and C4-5. There is mixed spondylitic wali nges at C5-6 with mild compression of the totic changes involvi ng C6-7 with marked compression of the thecal sac posteriorl y. No abnormal signal is identified within the spinal cord. The c raniocervical junction is unremarkable. Bone marrow signal within the vertebral bodies is unremarkable. Procedure Note Cristopher Yeung MD / Conner Elaine MD - 07/03/2009 BILATERAL NUMBNESS, TINGLING ARMS R/O CERVICAL RADICULOPATHY MRI CERVICAL SPINE W/O CONTRAST 06/27/01 , 1000 hours COMPARISON: none HISTORY: Bilateral numbness; r/o cervical radicul opathy TECHNIQUE: Sagittal T1 and T2 weighted images of th e cervical spine were performed. Axial gradient echo images of the cervical spine were performed. FINDINGS: There is uncinate spurring causing mild foraminal narrowing at C3-4 and C4-5. There is mixed spondylitic wali nges at C5-6 with mild compression of the totic changes involvi ng C6-7 with marked compression of the thecal sac posteriorl y. No abnormal signal is identified within the spinal cord. The c raniocervical junction is unremarkable. Bone marrow signal within the vertebral bodies is unremarkable. IMPRESSION IMPRESSION: 1. Mild left neural foraminal narrowing secondary to uncinate spurring at C3-4 and C4-5. 2. Mixed spondylitic changes at C5-6 cau sing mild compression of the thecal sac anteriorly. 3. Moderate to severe mixed spondylitic changes at C6-7 with marked thecal sac compression anteriorly. D 06/27/01 T 06/28/01 /john Performing Organization Address City/State/ZIP Code Phon e Number [facility] [address] [facility] [address] [facility] [address] [place], [place] [address] ORBITS FOREIGN BODY (06/27/2001 9:59 EST) Anatomical Region Laterality Modality Other Specimen Impressions [facility] - 07/03/2009 3: 35 EST IMPRESSION: #1: No abnormal intraoperative foreign b reza identified. D: 06-27-01 T: 06-27-01 /am Narrative [facility] - 07/03/2009 3: 35 EST PRE MRI ? R/O ??FOREIGN BODY 06-27-01 PRE MRI ORBITS FOR METALLIC FOR EIGN BODY (0945 hrs): Procedure Note Stan Castro MD - 07/03/2009 PRE MRI R/O FOREIGN BODY 06-27-01 PRE MRI ORBITS FOR METALLIC FOR EIGN BODY (0945 hrs): IMPRESSION IMPRESSION: #1: No abnormal intraoperative foreign b reza identified. D: 06-27-01 T: 06-27-01 /am Performing Organization Address City/State/ZIP Code Phon e Number [facility] [address] [facility] [address] [facility] [address] [place] [address] documented in this encounter Visit Diagnoses Not on filedocumented in this encounter
--- OUTSIDE RECORDS SUMMARY | 2022-02-21 10:29 | XMS_ITS | Encounter Summary ---
:1940 Author Organization [facility] Address [address] [place] [address] Care Team Providers Name Role Phone Unavailable Primary Care Provider Unavailable Encounter Details Date Type Department Care Team Description 08/31/2001 Hospital Encounter [facility] - Ivon Desir MD [address] [place] [address] [place] [address] Social History Tobacco Use Types Packs/Day Years Used Date Never Assessed Sex Assigned at Date Recorded Not on file documented as of this encounter Discharge Disposition Disposition Code Departure Means Destination Auto Discharge documented in this encounter Plan of Treatment Not on filedocumented as of this encounter Procedures Procedure Name Priority Date/Time Associated Diagnosis Comme nts CERVICAL SPINE Routine 08/31/2001 12:50 Results f or this AP&LAT EST procedure are i n the results section. documented in this encounter Results CERVICAL SPINE AP&LAT (08/31/2001 12:50 EST) Anatomical Region Laterality Modality Other Specimen Impressions [facility] - 07/03/2009 3: 16 EST IMPRESSION: 1. Stable C6-7 fusion. /law Narrative [facility] - 07/03/2009 3: 16 EST ANTERIOR C6-7 DISCECTOMY , ICBG AND SYTHES PLATING 08/10/01 ??1ST POST- OP ?? R/O ??SUBLUXATION ?GIVE FILMS TO PT LATERAL CERVICAL SPINE IN FLEXION AND EX TENSION DATE: 08/31/2001 TIME: 1235 COMPARISON STUDY: 08/10/2001 FINDINGS: The patient has had anterior fusion at C 6-7 with anterior fixation screw and plate device. On previous exam ination, most of C6 and C7 were overlain by soft tissue, but no wali nge in position of the fixation device is seen in comparison to the previous film. Today's views show no movement at the fusion sit e. There is considerable disc space narrowing at C5-6 with associated marginal osteophytosis. A mild subluxation at C4-5 is again identi fied without change. Procedure Note Zeeshan Howell MD - 07/03/2009 ANTERIOR C6-7 DISCECTOMY , ICBG AND SYTH ES PLATING 08/10/01 1ST POST- OP R/O SUBLUXATION GIVE FILMS TO PT LATERAL CERVICAL SPINE IN FLEXION AND EX TENSION DATE: 08/31/2001 TIME: 1235 COMPARISON STUDY: 08/10/2001 FINDINGS: The patient has had anterior fusion at C 6-7 with anterior fixation screw and plate device. On previous exam ination, most of C6 and C7 were overlain by soft tissue, but no wali nge in position of the fixation device is seen in comparison to the previous film. Today's views show no movement at the fusion sit e. There is considerable disc space narrowing at C5-6 with associated marginal osteophytosis. A mild subluxation at C4-5 is again identi fied without change. IMPRESSION IMPRESSION: 1. Stable C6-7 fusion. /law Performing Organization Address City/State/ZIP Code Phon e Number [facility] [address] [facility] [place] [address] [facility] [address] [place], [place] [address] documented in this encounter Visit Diagnoses Not on filedocumented in this encounter
--- OUTSIDE RECORDS SUMMARY | 2022-02-21 10:29 | XMS_ITS | Encounter Summary ---
:1940 Author Organization [facility] Address [address] [place] [address] Care Team Providers Name Role Phone Unavailable Primary Care Provider Unavailable Encounter Details Date Type Department Care Team Description 11/17/2005 Hospital Encounter [facility] - Anaya Burch MD [address] [place] [phone] Other Prince Burch MD [address] [place] [phone] [place] [phone] Social History Tobacco Use Types Packs/Day Years Used Date Never Assessed Sex Assigned at Date Recorded Not on file documented as of this encounter Discharge Disposition Disposition Code Departure Means Destination Home or Self Care documented in this encounter Plan of Treatment Not on filedocumented as of this encounter Procedures Procedure Name Priority Date/Time Associated Comments Diagnosis PSA TOTAL, Routine 11/17/2005 11:05 Results for this DIAGNOSTIC EDT procedure are i n the results section. documented in this encounter Results PSA (11/17/2005 11:05 EDT) PSA 0.8 0 - 4.5 ng/ml [facility] Comment: LAB Serum PSA concentration should not be interpreted as absolute evidence for the presence or absence of malignant disease. Assayed utilizing [employer] chemiluminescent technology. Values obtained by using different assay methods cannot be used interchangeably. Specimen Performing Organization Address City/State/ZIP Code Phon e Number [facility] [address] [place] [address] SERVICES [facility] [address] [place] [address] documented in this encounter Visit Diagnoses Not on filedocumented in this encounter
--- OUTSIDE RECORDS SUMMARY | 2022-02-21 10:29 | XMS_ITS | Encounter Summary ---
:1940 Author Organization [facility] Address [address] [place] [address] Care Team Providers Name Role Phone Anaya Burch MD Primary Care Provider Encounter Details Date Type Department Care Team Description 11/16/2014 Results Only [facility] Best Castaneda MD Laboratory Services - [address] [place] [address] [place] [address] [place] [address] [phone] Social History Tobacco Use Types Packs/Day Years Used Date Never Assessed Sex Assigned at Date Recorded Not on file documented as of this encounter Plan of Treatment Not on filedocumented as of this encounter Procedures Procedure Name Priority Date/Time Associated Diagnosis Comme nts BASIC METABOLIC Routine 11/16/2014 7:00 EDT Resul ts for this PANEL ([facility]) procedure are i n the results section. documented in this encounter Results (ABNORMAL) BASIC METABOLIC PANEL ([facility]) (11/16/2014 7:00 EDT) Bun, External 9 7 - 18 mg/dL [facility] Calcium, External 7.9 (L) 8.5 - 10.1 [facility] mg/dL [facility] Chloride, External 106 98 - 107 [facility] mEq/L [facility] CO2, External 23 21 - 32 mEq/L [facility] Creatinine, 0.7 0.5 - 1.4 [facility] External mg/dL [facility] GFR, Robert/Est., >60 [facility] External Comment: [facility] Chronic renal impairment is defined as GFR <60 Multiply result by 1.210 for patients . Glucose, Serum, 54 (L)Comment: 70 - 100 [facility] External Verified by repeat mg/dL [facility] analysis. Potassium, 4.0 3.5 - 5.0 [facility] External mEq/L [facility] Sodium, External 141 135 - 145 [facility] mEq/L [facility] Specimen Performing Organization Address City/State/ZIP Code Phon e Number [facility] [address] [place] [address] [facility] documented in this encounter Visit Diagnoses Not on filedocumented in this encounter Care Teams Shake Maker Relationship Specialty Start Date End Date Anaya Burch MD PCP - General 04/01/09 [address] [place] [phone] documented as of this encounter
--- OUTSIDE RECORDS SUMMARY | 2022-02-21 10:29 | XMS_ITS | Encounter Summary ---
:1940 Author Organization [facility] Address [address] [place] [address] Care Team Providers Name Role Phone Anaya Burch MD Primary Care Provider Encounter Details Date Type Department Care Team Description 11/12/2014 Hospital Encounter [facility] - Unknown, [facility] [phone] [place] [address] (Work) [place] [address] Social History Tobacco Use Types Packs/Day Years Used Date Never Assessed Sex Assigned at Date Recorded Not on file documented as of this encounter Discharge Disposition Disposition Code Departure Means Destination Home or Self Long Term documented in this encounter Plan of Treatment Not on filedocumented as of this encounter Procedures Procedure Name Priority Date/Time Associated Comments Diagnosis COMPREHENSIVE Routine 11/14/2014 6:30 Results for this METABOLIC PANEL ([facility]) EDT proce gerard are in the results section. documented in this encounter Results (ABNORMAL) COMPREHENSIVE METABOLIC PANEL ([facility]) (11/14/2014 6:30 EDT) Albumin, External 2.8 (L) 3.4 - 5.0 [facility] g/dL [facility] Total Alkaline 152 (H) 10 - 117 U/L [facility] Phosphatase, [facility] External Bilirubin, Total, 2.2 (H) 0.0 - 1.0 [facility] External mg/dL [facility] Bun, External 10 7 - 18 mg/dL [facility] Calcium, External 7.9 (L) 8.5 - 10.1 [facility] mg/dL [facility] Chloride, External 105 98 - 107 [facility] mEq/L [facility] CO2, External 23 21 - 32 mEq/L [facility] Creatinine, 0.7 0.5 - 1.4 [facility] External mg/dL [facility] GFR, Robert/Est., >60 [facility] External Comment: [facility] Chronic renal impairment is defined as GFR <60 Multiply result by 1.210 for patients . Glucose, Serum, 79 70 - 100 [facility] External mg/dL [facility] Potassium, 3.5 3.5 - 5.0 [facility] External mEq/L [facility] Sodium, External 139 135 - 145 [facility] mEq/L [facility] AST, External 83 (H) 10 - 37 U/L [facility] ALT, External 244 (H) 12 - 78 U/L [facility] Specimen Performing Organization Address City/State/[facility] Code Phon e Number [facility] [address] [place] [address] [facility] documented in this encounter Visit Diagnoses Not on filedocumented in this encounter Care Teams Route Rider Supervisor Relationship Specialty Start Date End Date Anaya Burch MD PCP - General 04/01/[address] [place] [address] [phone] documented as of this encounter
--- OUTSIDE RECORDS SUMMARY | 2022-02-21 10:29 | XMS_ITS | Encounter Summary ---
:1940 Author Organization [facility] Address [address] [place] [address] Care Team Providers Name Role Phone Anaya Burch MD Primary Care Provider Encounter Details Date Type Department Care Team Description 05/09/2002 Hospital Encounter [facility] - Anaya Burch [facility] MD Melody [address] [place] [address] [place], [place] [phone] (Wo rk) Social History Tobacco Use Types [...] on filedocumented in this encounter Care Teams Compactor Driver Relationship Specialty Start Date End Date Anaya Burch MD PCP - General 04/01/[address] [place] [address] [phone] documented as of this encounter
--- OUTSIDE RECORDS SUMMARY | 2022-02-21 10:29 | XMS_ITS | Encounter Summary ---
:[address] [facility] Address [address] [place] [address] Care Team Providers Name Role Phone Unavailable Primary Care Provider Unavailable Encounter Details Date Type Department Care Team Description 07/23/2007 Hospital Encounter [facility] - Anaya Burch MD [id number] [place] [phone] (Wo rk) Social History Tobacco Use Types [...]
--- OUTSIDE RECORDS SUMMARY | 2022-02-21 10:29 | XMS_ITS | Encounter Summary ---
:1940 Author Organization [facility] Address [address] [place] [address] Care Team Providers Name Role Phone Anaya Burch MD Primary Care Provider Encounter Details Date Type Department Care Team Description 04/03/2000 Hospital Encounter [facility] - Manohar Montalvo PA [address] [place], [place] [id number] Other Unknown, Provider, [address] [place], [place] [id number] Social History Tobacco Use Types Packs/Day Years Used Date Former Smoker 0.5 20 Alcohol Use Standard Drinks/Week Comments No 0 (1 standard drink = 0.6 oz pure alcoho l) Sex Assigned at Date Recorded Not on file documented as of this encounter Plan of Treatment Not on filedocumented as of this encounter Procedures Procedure Name Priority Date/Time Associated Diagnosis Comme nts HEMAGRAM & DIFF Routine 04/03/2000 15:00 Results for this EDT procedure are i n the results section. BASIC METABOLIC Routine 04/03/2000 15:00 Results for this PANEL (BMP) EDT procedure are i n the results section. documented in this encounter Results HEMAGRAM & DIFF (04/03/2000 15:00 EDT) Pathologist Sig nature WBC 7.43 4.0 - 10.4 K/cmm [facility] RBC 5.00 4.36 - 5.78 M/cmm [facility] Hemoglobin 15.5 13.8 - 17.3 gm/dl [facility] HCT 45.9 39.5 - 50.2 % [facility] MCV 92 81 - 95 fl [facility] MCH 31.0 27.6 - 33.0 pg [facility] MCHC 33.8 32.8 - 36.4 gm/dl [facility] PLT 288 141 - 320 K/cmm [facility] RDW-CV 13.0 11.8 - 14.1 % [facility] Neutrophils 71.8 45.5 - 79.7 % [facility] Lymphocytes 19.3 15.0 - 46.8 % [facility] Monocytes 5.9 1.8 - 12.0 % [facility] Eosinophils 2.5 0.6 - 6.9 % [facility] Basophils 0.5 0.2 - 1.4 % [facility] ABS Neutrophils 5.34 2.20 - 8.85 K/cmm [facility] ABS Lymphs 1.43 1.09 - 3.30 K/cmm [facility] ABS Monocytes 0.44 0.1 - 0.8 K/cmm [facility] ABS Eosinophils 0.18 0.03 - 0.61 K/cmm [facility] ABS Basophils 0.04 0.01 - 0.11 K/cmm [facility] Type of Diff: Automated [facility] Specimen Performing Organization Address City/State/ZIP Code Phon e Number [facility] [address] [place] [address] SERVICES [facility] [address] [place] [address] BASIC METABOLIC PANEL (04/03/2000 15:00 EDT) [facility] nature Sodium 140 136 - 145 mEq/L [facility] Potassium 4.2 3.5 - 5.0 mEq/L [facility] Chloride 101 96 - 110 mEq/L [facility] CO2 29 24 - 30 mEq/L [facility] BUN 23 10 - 26 mg/dl [facility] Creatinine 1.3 0.7 - 1.5 mg/dl [facility] Calcium 9.0 8.5 - 10.5 mg/dl [facility] Calculated Calcium 9.4 8.5 - 10.5 mg/dl [facility] Glucose, Serum 89 70 - 110 mg/dl [facility] Specimen Performing Organization Address City/State/ZIP Code Phon e Number [facility] [address] [place] [address] SERVICES [facility] [address] [place] [address] documented in this encounter Visit Diagnoses Not on filedocumented in this encounter Care Teams Supervisor Dry Cleaning Relationship Specialty Start Date End Date Anaya Burch MD PCP - General 04/01/[address] [place] [phone] documented as of this encounter
--- OUTSIDE RECORDS SUMMARY | 2022-02-21 10:29 | XMS_ITS | Encounter Summary ---
:[address] [facility] Address [address] [place] [address] Care Team Providers Name Role Phone Unavailable Primary Care Provider Unavailable Encounter Details Date Type Department Care Team Description 10/22/2007 Hospital Encounter [facility] - Anaya Burch MD [id number] [place] [phone] (Wo rk) Social History Tobacco Use Types [...]
--- OUTSIDE RECORDS SUMMARY | 2022-02-21 10:29 | XMS_ITS | Encounter Summary ---
:1940 Author Organization [facility] Address [address] [place] [address] Care Team Providers Name Role Phone Anaya Burch MD Primary Care Provider Encounter Details Date Type Department Care Team Description 11/15/2014 Results Only [facility] Best Castaneda MD Laboratory Services - [address] [place] [address] [place] [address] [place] [address] [phone] Social History Tobacco Use Types Packs/Day Years Used Date Never Assessed Sex Assigned at Date Recorded Not on file documented as of this encounter Plan of Treatment Not on filedocumented as of this encounter Procedures Procedure Name Priority Date/Time Associated Diagnosis Comme nts BASIC METABOLIC Routine 11/15/2014 6:45 EDT Resul ts for this PANEL ([facility]) procedure are i n the results section. documented in this encounter Results (ABNORMAL) BASIC METABOLIC PANEL ([facility]) (11/15/2014 6:45 EDT) Bun, External 7 7 - 18 mg/dL [facility] Calcium, External 7.7 (L) 8.5 - 10.1 [facility] mg/dL [facility] Chloride, External 104 98 - 107 [facility] mEq/L [facility] CO2, External 26 21 - 32 mEq/L [facility] Creatinine, 0.8 0.5 - 1.4 [facility] External mg/dL [facility] GFR, Robert/Est., >60 [facility] External Comment: [facility] Chronic renal impairment is defined as GFR <60 Multiply result by 1.210 for patients . Glucose, Serum, 119 (H) 70 - 100 [facility] External mg/dL [facility] Potassium, 3.7 3.5 - 5.0 [facility] External mEq/L [facility] Sodium, External 140 135 - 145 [facility] mEq/L [facility] Specimen Performing Organization Address City/State/ZIP Code Phon e Number [facility] [address] [place] [address] [facility] documented in this encounter Visit Diagnoses Not on filedocumented in this encounter Care Teams Non Profit Financial Controller Relationship Specialty Start Date End Date Anaya Burch MD PCP - General 04/01/09 [address] [place] [phone] documented as of this encounter
--- OUTSIDE RECORDS SUMMARY | 2022-02-21 10:29 | XMS_ITS | Encounter Summary ---
:1940 Author Organization [facility] Address [address] [place] [address] Care Team Providers Name Role Phone Anaya Burch MD Primary Care Provider Encounter Details Date Type Department Care Team Description 04/19/2011 Results Only [facility] Anaya Burch, Laboratory Services - Chanell SERRANO [facility] [address] [place] [address] [phone] (Wo rk) Social History Tobacco Use Types Packs/Day Years Used Date Never Assessed Sex Assigned at Date Recorded Not on file documented as of this encounter Plan of Treatment Not on filedocumented as of this encounter Visit Diagnoses Not on filedocumented in this encounter Care Teams Arboriculturist Relationship Specialty Start Date End Date Anaya Burch MD PCP - General 04/01/[address] [place] [address] [phone] documented as of this encounter
--- OUTSIDE RECORDS SUMMARY | 2022-02-21 10:29 | XMS_ITS | Encounter Summary ---
:1940 Author Organization [facility] Address [address] [place] [address] Care Team Providers Name Role Phone Anaya Burch MD Primary Care Provider Encounter Details Date Type Department Care Team Description 10/22/2007 Results Only [facility] - Anaya Hawkins, conversion MD [id number] [place], [place] [address] [place] [address] [phone] (Wo rk) Social History Tobacco Use Types Packs/Day Years Used Date Never Assessed Sex Assigned at Date Recorded Not on file documented as of this encounter Plan of Treatment Not on filedocumented as of this encounter Procedures Procedure Name Priority Date/Time Associated Diagnosis Comme nts URINE CHEMICAL Routine 10/22/2007 16:45 Results f or this (DIP) & SEDIMENT EDT procedure a re in (MICRO) WITHOUT the results REFLEX TO CULTURE section. BACTERIAL CULTURE, Routine 10/22/2007 16:45 Resul ts for this URINE EDT procedure are i n the results section. documented in this encounter Results BACTERIAL CULTURE, URINE (10/22/2007 16:45 EDT) Pathologist Sig nature Specimen Description Urine [facility] Result No growth [facility] Report Status Final [facility] [id number] Specimen Performing Organization Address City/State/ZIP Code Phon e Number [facility] [address] [place] [address] SERVICES [facility] [address] [place] [address] UA WITH MICROSCOPIC (10/22/2007 16:45 EDT) Color, UA Yellow [facility] Clarity, UA Clear [facility] Glucose, UA Norm NORM [facility] Bilirubin, UA Neg NEG [facility] Ketones, UA Neg NEG [facility] Specific Dema, 1.025 1.005 - 1.02 [facility] Blood, UA Neg NEG [facility] pH, UA 5.5 5.0 - 9.0 [facility] Protein, UA Neg NEG [facility] Urobilinogen, UA Norm NORM mg/dL [facility] Nitrite, UA Neg NEG [facility] Leuk Esterase Neg NEG [facility] WBC, UA None seen 0 - 5 /HPF [facility] RBC, UA None seen 0 - 5 /HPF [facility] Squam Epithel, UA None seen NS /HPF [facility] Renal Epithel, UA None seen NS /HPF [facility] Bacteria, UA None seen NS /HPF [facility] Crystals, UA None seen /HPF [facility] Hyaline Casts, UA None seen /LPF [facility] UA Comment Microscopic results [facility] are unreliable on LAB urines unrefrig >2hrs or refrig >8hrs. Mucus, UA Present [facility] Specimen Performing Organization Address City/State/ZIP Code Phon e Number [facility] [address] [place] [address] SERVICES [facility] [address] [place] [address] documented in this encounter Visit Diagnoses Not on filedocumented in this encounter Care Teams Dragger Relationship Specialty Start Date End Date Anaya Burch MD PCP - General 04/01/[address] [place] [phone] documented as of this encounter
--- OUTSIDE RECORDS SUMMARY | 2022-02-21 10:29 | XMS_ITS | Encounter Summary ---
:1940 Author Organization [facility] Address [address] [place] [address] Care Team Providers Name Role Phone Anaya Burch MD Primary Care Provider Encounter Details Date Type Department Care Team Description 11/17/2014 Results Only [facility] Best Castaneda MD Laboratory Services - [address] [place] [address] [place] [address] [place] [address] [phone] Social History Tobacco Use Types Packs/Day Years Used Date Never Assessed Sex Assigned at Date Recorded Not on file documented as of this encounter Plan of Treatment Not on filedocumented as of this encounter Procedures Procedure Name Priority Date/Time Associated Diagnosis Comme nts BASIC METABOLIC Routine 11/17/2014 6:30 EDT Resul ts for this PANEL ([facility]) procedure are i n the results section. HEPATIC FUNCTION Routine 11/17/2014 6:30 EDT Resu lts for this PANEL ([facility] procedure are in PHOS,ALT,AST,DBIL,T the resu lts OT GIL,TOT PROT) section. documented in this encounter Results (ABNORMAL) HEPATIC FUNCTION PANEL ([facility] PHOS,ALT,AST,DBIL,TOT GIL,TOT PROT) (11/17/2014 6:30 EDT) Pathologist Sig nature Albumin, External 2.5 (L) 3.4 - 5.0 g/dL [facility] Total Alkaline 119 (H) 10 - 117 U/L [facility] Phosphatase, [facility] External Bilirubin, Total, 0.8 0.0 - 1.0 mg/dL [facility] AST, External 23 10 - 37 U/L [facility] ALT, External 91 (H) 12 - 78 U/L [facility] Specimen Narrative [facility] - 015 17:11 EDT AOT: 11/17/14 1651: LIVER Performing Organization Address City/[facility]/ZIP Code Phon e Number [facility] [address] [place] [address] [facility] (ABNORMAL) BASIC METABOLIC PANEL (CV) (11/17/2014 6:30 EDT) Bun, External 6 (L) 7 - 18 mg/dL [facility] Calcium, External 8.1 (L) 8.5 - 10.1 [facility] mg/dL [facility] Chloride, External 104 98 - 107 [facility] mEq/L [facility] CO2, External 25 21 - 32 mEq/L [facility] Creatinine, 0.7 0.5 - 1.4 [facility] External mg/dL [facility] GFR, Robert/Est., >60 [facility] External Comment: [facility] Chronic renal impairment is defined as GFR <60 Multiply result by 1.210 for patients . Glucose, Serum, 126 (H) 70 - 100 [facility] External mg/dL [facility] Potassium, 3.9 3.5 - 5.0 [facility] External mEq/L [facility] Sodium, External 139 135 - 145 [facility] mEq/L [facility] Specimen Narrative [facility] - 17:11 EDT AOT: 11/17/14 1651: LIVER Performing Organization Address City/[facility] Code Phon e Number [facility] [address] [place] [address] [facility] documented in this encounter Visit Diagnoses Not on filedocumented in this encounter Care Teams Clinical Project Manager Relationship Specialty Start Date End Date Anaya Burch MD PCP - General 04/01/09 [address] [place] [phone] documented as of this encounter
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
[2022-02-21 11:59] LABS: Troponin I < 50 ng/L (<or=60)
[2022-02-21] MEDS: Ibuprofen 600 MG TAB PO (12:15)
[2022-02-21] MEDS: Acetaminophen 325 MG TAB 650 MG PO (12:15)
== END 2022-02-21 12:36 | disposition home or self-care (01) ==
PROVIDERS: Emergency Provider Physician Assistant
DX: S20.211A Contusion of right front wall of thorax, initial encounter (principal); I71.4 Abdominal aortic aneurysm, without rupture; E04.1 Nontoxic single thyroid nodule; K57.30 Diverticulosis of large intestine without perforation or abscess without bleeding; R41.0 Disorientation, unspecified; Z87.891 Personal history of nicotine dependence; V89.2XXA Person injured in unspecified motor-vehicle accident, traffic, initial encounter
CPT/HCPCS: 36415; 74177; 80053; 80307; 83690; 93005; 96360; 99285; 70450; 71260; 72125; 81003; 81015; 83735; 84484; 85025; 93010; 99284; J3490